=== PATIENT | female | born 1945 | race Caucasian/White ===

== ENCOUNTER 2020-02-07 17:03 | Inpatient (IN) | payer OTHER, SELFPAY ==
[2020-02-07 17:17] VITALS: BP 110/66; PULSE 95; RESP 18; TEMP 37.9; O2SAT 88; BMI 18.8
[2020-02-07 18:04] VITALS: BP 133/59; PULSE 77; RESP 18; TEMP 37.4; O2SAT 96
--- NOTE | 2020-02-07 18:07 | ED.GENADULT ---
HPI - General Adult General Chief complaint: General Medical Stated complaint: cough Time Seen by Provider: 02/07/20 22:47 Source: patient Mode of arrival: ambulatory Limitations: no limitations History of Present Illness HPI narrative: 74-year-old female with past medical history of hypertension and hyperlipidemia presents with several days weakness, lethargy, poor p.o. intake, cough, and significant life stressors. Her mother 2 days ago and is selling multiple properties. She does not report any sick contacts, does not report any chest pain or pressure, palpitations, abdominal pain, abdominal distention, dysuria, hematuria, edema, or falls. Onset (ago): day(s) Radiation: non-radiation Severity: moderate Severity scale (1-10): 7 Quality: aching Pain Consistency: constant Relieving factors: none Exacerbating factors: movement Associated symptoms: cough, headaches, loss of appetite, malaise and weakness Treatments prior to arrival: NSAID Related Data Home Medications Medication Instructions Recorded Confirmed losartan 1 tab PO DAILY 02/07/20 02/07/20 pravastatin 20 mg PO BEDTIME 02/07/20 02/07/20 Allergies Allergy/AdvReac Type Severity Reaction Status Date / Time No Known Allergies Allergy Verified 02/07/20 18:08 Review of Systems Review of Systems: Constitutional: positive Fever, positive Chills, positive fatigue, positive Malaise ENT/Mouth: positive sore throat, positive runny nose Eyes: No Discharge Cardiovascular: No Chest Pain, positive SOB Respiratory: Positive Cough, No Sputum, No Wheezing, No Smoke Exposure, No Dyspnea Gastrointestinal: No Nausea, No Vomiting, No Diarrhea Genitourinary: no irregular bleeding, No Dysuria, No Urinary Frequency, No Hematuria, No Urinary Incontinence, No Urgency, No Flank Pain, Musculoskeletal: positive Myalgia Skin: No rash Neuro: No Headache Yes all other systems are reviewed and are negative PMFSH Past Medical History Attestation statement: The following information was validated with the patient. Medical History No known health problems Social History Social History Smoked in Last 30 Days: No Use of substances other than those prescribed or required for medical reasons: No Advance Directives: No Advance Directives Information Provided: No Physical Exam Vital Signs: Vital Signs: Last Vital Signs Temp 97.1 F 02/08/20 00:41 Pulse 72 02/08/20 00:41 Resp 18 02/08/20 00:41 BP 123/61 02/08/20 00:41 Pulse Ox 93 02/08/20 00:41 Body Mass Index 18.8 Appearance: Alert. Oriented X3. Moderate distress. Tachypneic, pale, mild diaphoretic, hypoxic Eyes: Pupils equal, round and reactive to light. ENT: Pharynx normal. Neck: Normal inspection. Neck supple. CVS: Tachycardic heart rate and rhythm. Pulses normal. Respiratory: No respiratory distress. Breath sounds wheezing and coarse Abdomen: Soft and nontender. Skin: Skin warm and mild diaphoresis Normal skin color. Normal skin turgor. Extremities: No lower extremity edema. Neuro: No motor deficit. No sensory deficit. Course Course Course Narrative: 74-year-old female with hypertension and hyperlipidemia presents with upper respiratory symptoms consistent with COVID-19, hypoxia and multiple life stressors. She does report to be under significant stress because her mother 2 days ago and is selling properties. She does not report suicidal or homicidal ideations. She does not report depression but states to have appropriate and significant anxiety at this time. She is hypoxic on arrival, required 2 L of O2 nasal cannula, heart rate is 95 tachycardic, temperature 100.3 oral, while she does meet SIRS criteria this is a viral upper respiratory infection. Patient is COVID positive, needs O2 nasal cannula to maintain saturation above 92%. Discussion with hospitalist regarding plan to admit. Consultations Consultation #1: Anthony Rodríguez Time: 20:43 Medical Decision Making Differential Diagnosis Differential Diagnosis: COVID-19, pneumonia, viral syndrome, sepsis Medical Records Medical records reviewed: Yes I reviewed the patient's medical records. Lab Data Lab results reviewed: Yes I reviewed the patient's lab results. Result diagrams: 02/07/20 18:33 02/07/20 18:33 Labs: Lab Results 02/07/20 02/07/20 02/07/20 Range/Units 18:33 18:33 18:33 WBC 5.5 (4.8-10.8) X10*3/uL RBC 4.86 (4.20-5.50) X10*6/uL Hgb 14.6 (12.0-16.0) g/dl Hct 43.4 (37-47) % MCV 89.3 (80-98) fL MCH 30.0 (27.0-33.0) pg MCHC 33.6 (31.0-35.0) g/dl RDW 12.5 (11.0-16.0) % Plt Count 166 (160-400) X10*3/uL MPV 9.6 (9.4-12.3) fL Immature Gran % (Auto) 0.4 (0.0-0.4) % Neut % (Auto) 79.2 H (45-73) % Lymph % (Auto) 12.9 L (20-40) % [place] % (Auto) 7.3 (2-11) % Eos % (Auto) 0.0 (0-4) % Baso % (Auto) 0.2 (0-2) % Lymph # (Auto) 0.7 L (1.2-4.9) X10*3/uL [place] # (Auto) 0.4 (0.1-1.2) X10*3/uL Eos # (Auto) 0.0 (0.0-0.4) X10*3/uL Baso # (Auto) 0.0 (0.0-0.2) X10*3/uL Abs Immat Gran (auto) 0.02 (0.00-0.03) X10*3/uL Absolute Neuts (auto) 4.4 (2.0-8.3) X10*3/uL Absolute Nucleated RBC 0.000 (0.0-0.012) X10*3/uL Nucleated RBC % (auto) 0.0 (0.0-0.2) /100WBC PT 12.5 (10.8-13.0) SEC INR 1.1 (0.9-1.1) APTT 27.9 (24.1-38.0) SEC Sodium 134 L (135-145) mmol/L Potassium 4.5 (3.3-5.1) mmol/l Chloride 98 (96-108) mmol/L Carbon Dioxide 29 (22-29) mmol/L Anion Gap 12 (12-20) BUN 16 (9-16) mg/dL Creatinine 0.81 (0.5-1.4) mg/dL Estim Creat Clear Calc 47.3 Estimated GFR > 60 Random Glucose 108 (60-115) mg/dL Lactic Acid (0.5-2.0) mmol/L Calcium 8.4 (8.4-10.2) mg/dL Troponin I High Sens (<3.5-17.0) ng/L Coronavirus (PCR) (Negative) Influenza Type A (PCR) (Negative) Influenza Type B (PCR) (Negative) RSV RNA Qual (PCR) (Negative) 02/07/20 02/07/20 02/07/20 Range/Units 18:33 18:33 18:33 WBC (4.8-10.8) X10*3/uL RBC (4.20-5.50) X10*6/uL Hgb (12.0-16.0) g/dl Hct (37-47) % MCV (80-98) fL MCH (27.0-33.0) pg MCHC (31.0-35.0) g/dl RDW (11.0-16.0) % Plt Count (160-400) X10*3/uL MPV (9.4-12.3) fL Immature Gran % (Auto) (0.0-0.4) % Neut % (Auto) (45-73) % Lymph % (Auto) (20-40) % [place] % (Auto) (2-11) % Eos % (Auto) (0-4) % Baso % (Auto) (0-2) % Lymph # (Auto) (1.2-4.9) X10*3/uL [place] # (Auto) (0.1-1.2) X10*3/uL Eos # (Auto) (0.0-0.4) X10*3/uL Baso # (Auto) (0.0-0.2) X10*3/uL Abs Immat Gran (auto) (0.00-0.03) X10*3/uL Absolute Neuts (auto) (2.0-8.3) X10*3/uL Absolute Nucleated RBC (0.0-0.012) X10*3/uL Nucleated RBC % (auto) (0.0-0.2) /100WBC PT (10.8-13.0) SEC INR (0.9-1.1) APTT (24.1-38.0) SEC Sodium (135-145) mmol/L Potassium (3.3-5.1) mmol/l Chloride (96-108) mmol/L Carbon Dioxide (22-29) mmol/L Anion Gap (12-20) BUN (9-16) mg/dL Creatinine (0.5-1.4) mg/dL Estim Creat Clear Calc Estimated GFR Random Glucose (60-115) mg/dL Lactic Acid 1.0 (0.5-2.0) mmol/L Calcium (8.4-10.2) mg/dL Troponin I High Sens 8.2 (<3.5-17.0) ng/L Coronavirus (PCR) POSITIVE A (Negative) Influenza Type A (PCR) NEGATIVE (Negative) Influenza Type B (PCR) NEGATIVE (Negative) RSV RNA Qual (PCR) NEGATIVE (Negative) Imaging Data CT scan - chest: Attestation: I personally reviewed and interpreted this imaging study as follows: Radiologist's impression: EXAMINATION: CT CHEST WITHOUT CONTRAST CLINICAL INFORMATION: Hypoxia COMPARISON: None TECHNIQUE: Multidetector volumetric CT imaging of the chest was done. Axial MIP volume rendering provided. Sagittal and coronal reformatted images were obtained. This CT examination was performed using dose optimization techniques as appropriate, variously including the following: *Automated exposure control *Adjustment of mA and/or kV according to patient size (this includes techniques or standardized protocols for targeted exams where dose is matched to indication/reason for exam; i.e. extremities or head) *Use of iterative reconstruction technique DLP: 190 mGy-cm FINDINGS: ANIMAL HUMANE AGENT SUPERVISOR: Unremarkable. LUNGS: The central airways are patent. There are patchy groundglass opacities seen diffusely throughout both lungs. There is a peripheral distribution. No dense consolidation. No pneumothorax. No suspicious pulmonary nodules, although the lung opacities can limit visualization. MEDIASTINUM: Normal heart size. No pericardial effusion. Mildly prominent pretracheal lymph node which measures 0.8 cm in short axis dimension on series 3 image 16. No pathologically enlarged lymph nodes are seen. PLEURA: There is no pleural effusion. No pleural mass or thickening. AXILLA: No lymphadenopathy. UPPER ABDOMEN: There is a 1.9 cm cyst in segment 2 of the liver anteriorly. No acute abnormality in the visualized upper abdomen. OSSEOUS STRUCTURES: No acute or suspicious osseous abnormality. Mild degenerative changes of the spine. CT/CT chest wo con IMPRESSION: Patchy groundglass opacities are seen throughout both lungs with peripheral distribution. This is suggestive of infectious or inflammatory process. This is a typical pattern for COVID pneumonia. ECG Data Attestation: I personally reviewed and interpreted this ECG as follows: Prior ECG tracings: not available for review Interpretation: Vent. Rate : 071 BPM Atrial Rate : 071 BPM P-R Int : 128 ms QRS Dur : 082 ms QT Int : 378 ms P-R-T Axes : 036 009 017 degrees QTc Int : 410 ms Normal sinus rhythm Normal ECG No previous ECGs available Date 02/07/2020 time 6:56 p.m. Critical Care Time Critical Care Time Critical Care Time: Yes Total Critical Care Time: 45 Attestation: I have personally provided critical care time exclusive of time spent on separately billable procedures. Time includes review of laboratory data, radiology results, discussion with consultants, and monitoring for potential decompensation. Interventions were performed as documented. Discharge Plan Discharge Clinical Impression: Hypoxia, COVID-19 Patient Disposition: Admitted As Inpatient Interventions: Admission Worksheet (ED) Last Done: 02/08/20 00:44 Discharge Date/Time: 02/08/20 00:44
--- NOTE | 2020-02-07 18:08 | ECG_ITS ---
Test Reason : DIZZINESS Blood Pressure : / mmHG Vent. Rate : 071 BPM Atrial Rate : 071 BPM P-R Int : 128 ms QRS Dur : 082 ms QT Int : 378 ms P-R-T Axes : 036 009 017 degrees QTc Int : 410 ms Normal sinus rhythm Normal ECG No previous ECGs available Referred By: Jade Candelaria Electronically Signed By:Guillermo Sheppard
[2020-02-07 18:50] LABS: MANUAL DIFF FLAG NO
[2020-02-07 18:52] LABS: Basophils Percent Auto 0.2 % (0-2); Hematocrit 43.4 % (37-47); Hemoglobin 14.6 g/dl (12.0-16.0); Imm Gran Abs Auto 0.02 X10*3/uL (0.00-0.03); Imm Gran Pct Auto 0.4 % (0.0-0.4); Lymphocytes Absolute Auto 0.7 X10*3/uL (1.2-4.9); Lymphocytes Percent Auto 12.9 % (20-40); Mean Corpuscular HGB Conc 33.6 g/dl (31.0-35.0); Mean Corpuscular Volume 89.3 fL (80-98); Mean Platelet Volume 9.6 fL (9.4-12.3); Monocytes Absolute Auto 0.4 X10*3/uL (0.1-1.2); Monocytes Percent Auto 7.3 % (2-11); Neutrophils Absolute Auto 4.4 X10*3/uL (2.0-8.3); Neutrophils Percent Auto 79.2 % (45-73); Platelet Count 166 X10*3/uL (160-400); Red Blood Count 4.86 X10*6/uL (4.20-5.50); Red Cell Distribution Width 12.5 % (11.0-16.0); White Blood Count 5.5 X10*3/uL (4.8-10.8)
[2020-02-07 19:08] LABS: INTERNATIONAL NORM RATIO 1.1 (0.9-1.1); Prothrombin Time 12.5 SEC (10.8-13.0)
[2020-02-07 19:10] LABS: Partial Thromboplastin Time 27.9 SEC (24.1-38.0)
[2020-02-07 19:13] LABS: Anion Gap 12 (12-20); Blood Urea Nitrogen 16 mg/dL (9-16); Calcium 8.4 mg/dL (8.4-10.2); Carbon Dioxide 29 mmol/L (22-29); Chloride 98 mmol/L (96-108); Creatinine Clr Calc Pharmacy 47.3; Estimated Glomerular Filt Rate > 60; Glucose Random 108 mg/dL (60-115); Potassium 4.5 mmol/l (3.3-5.1); Sodium 134 mmol/L (135-145)
[2020-02-07 19:20] LABS: Troponin-I High Sensitivity 8.2 ng/L (<3.5-17.0)
[2020-02-07 19:27] LABS: Influenza A PCR NEGATIVE (Negative); Influenza B PCR NEGATIVE (Negative); Resp Syncy Virus RNA Qual PCR NEGATIVE (Negative); SARS COV2 PCR INHOUSE POSITIVE (Negative)
[2020-02-07 19:43] VITALS: BP 116/55; PULSE 70; RESP 16; TEMP 37.2; O2SAT 95
--- NOTE | 2020-02-07 19:44 | PC.NURSE ---
Pt resting in bed, CAOx4 speaking full sentences, pt denies pain/discomfort, SOB at this time. Pt explains that she has been feeling unwell for 3-4 days with a dry cough, SOB and weakness. Pt aware of pending labs. VSS. Lights dim for comfort. Continue to monitor.
--- NOTE | 2020-02-07 19:45 | PC.NURSE ---
Pt aware of pending urine sample, states she is unable to go at this time. Pt to call when able to urinate.
[2020-02-07 20:04] VITALS: PULSE 70; O2SAT 96
[2020-02-07] MEDS: Albuterol Sulfate 90 MCG 8 GM INHALER 2 PUFF INHALE (20:04)
--- NOTE | 2020-02-07 20:18 | PC.NURSE ---
RT at bedside for inhaler. RT report attempts at weaning pt from O2 unsuccessful, pt quickly desatted to 90% on RA, RT reapplied O2 via NC @ 2lpm. Pt medicated with Decadron per APR.
--- NOTE | 2020-02-07 21:30 | PC.NURSE ---
BRONZE PLATER at bedside explaining plan to admit, pt agreeable to admission. Awaiting hospitalist and room assignment.
--- NOTE | 2020-02-07 23:14 | PM.IMHP ---
History of Present Illness Date of Service: 02/07/20 Chief Complaint: SOB 74 y/o female with PMHX of HTN and HLP who presented from home c/o SOB. Per history provided by the patient, for the past several days has been having worsening dry cough associated with SOB at rest, generalized weakness and Poor apppetite. Patient denies any chest pain, nausea, vomiting, diarrhea or fever. No sick contacts or recent travel. On presentation to the ED patient was found to be hemodynamically stable, no evidence of fever, O2 sat on room air of 88, Blood work showing NA of 134, Covid +, CT chest showing bilateral patchy opacities. Patient placed on nasal cannula saturating well now and One dose of IV steroid given. Decision for admission given. Patient seen and examined at the bedside, laying down in bed in no acute distress. ROS as above otherwise negative. Physical exam unremarkable. PMHX; HTN, HLP PSx: none Toxic habits: No hx of alcohol abuse, smoking or IVDA Review of Systems Constitutional: Constitutional: Reports as per [facility] Medical History No known health problems Functional capacity: independent ambulation Social History Smoked in Last 30 Days: No Use of substances other than those prescribed or required for medical reasons: No Advance Directives: No Advance Directives Information Provided: No Meds Allergies Allergy/AdvReac Type Severity Reaction Status Date / Time No Known Allergies Allergy Verified 02/07/20 18:08 Home Medications Medication Instructions Recorded Confirmed Type losartan 1 tab PO DAILY 02/07/20 02/07/20 History pravastatin 20 mg PO BEDTIME 02/07/20 02/07/20 History Physical Exam Vital Signs and Narrative: Vital Signs: Last Vital Signs Temp 99.0 F 02/07/20 19:43 Pulse 70 02/07/20 20:04 Resp 16 02/07/20 19:43 BP 116/55 L 02/07/20 19:43 Pulse Ox 95 02/07/20 19:43 Body Mass Index 18.8 Const: General: cooperative, comfortable and no acute distress Orientation/consciousness: oriented to person, oriented to place and oriented to time HENMT: Head: Yes normal to inspection Eyes: General: appearance normal, both eyes and all related structures Neck: Yes normal visual inspection Chest: Chest palpation & inspection: normal inspection of the chest Resp: Effort & Inspection: normal respiratory effort Auscultation: clear to auscultation bilaterally Cardio: Jugular venous distension: no JVD Rate: regular rate Rhythm: regular rhythm Heart sounds: S1 normal heart sound present and S2 normal heart sound present GI: Inspection: Yes normal to inspection Skin: General skin exam: no rashes or lesions noted Neuro: General: oriented to person, oriented to place and oriented to time Cognition (Neuro): normal cognition Extrem: Right upper extremity: normal to inspection Results Labs CBC and Chem 7: 02/07/20 18:33 12 18:33 Labs: Laboratory Results - last 24 hr 02/07/20 02/07/20 02/07/20 18:33 18:33 18:33 MCV 89.3 MCH 30.0 MCHC 33.6 RDW 12.5 Plt Count 166 MPV 9.6 Immature Gran % (Auto) 0.4 Neut % (Auto) 79.2 H Lymph % (Auto) 12.9 L [place] % (Auto) 7.3 Eos % (Auto) 0.0 Baso % (Auto) 0.2 Lymph # (Auto) 0.7 L [place] # (Auto) 0.4 Eos # (Auto) 0.0 Baso # (Auto) 0.0 Abs Immat Gran (auto) 0.02 Absolute Neuts (auto) 4.4 Absolute Nucleated RBC 0.000 Nucleated RBC % (auto) 0.0 PT 12.5 INR 1.1 APTT 27.9 Anion Gap 12 Estim Creat Clear Calc 47.3 Estimated GFR > 60 Random Glucose 108 Lactic Acid Calcium 8.4 Troponin I High Sens Coronavirus (PCR) Influenza Type A (PCR) Influenza Type B (PCR) RSV RNA Qual (PCR) 02/07/20 02/07/20 02/07/20 18:33 18:33 18:33 MCV MCH MCHC RDW Plt Count MPV Immature Gran % (Auto) Neut % (Auto) Lymph % (Auto) [place] % (Auto) Eos % (Auto) Baso % (Auto) Lymph # (Auto) [place] # (Auto) Eos # (Auto) Baso # (Auto) Abs Immat Gran (auto) Absolute Neuts (auto) Absolute Nucleated RBC Nucleated RBC % (auto) PT INR APTT Anion Gap Estim Creat Clear Calc Estimated GFR Random Glucose Lactic Acid 1.0 Calcium Troponin I High Sens 8.2 Coronavirus (PCR) POSITIVE A Influenza Type A (PCR) NEGATIVE Influenza Type B (PCR) NEGATIVE RSV RNA Qual (PCR) NEGATIVE Imaging Radiologist's Impressions: Impressions Chest CT 02/07/20 18:08 IMPRESSION: Patchy groundglass opacities are seen throughout both lungs with peripheral distribution. This is suggestive of infectious or inflammatory process. This is a typical pattern for COVID pneumonia. Assessment and Plan (1) Respiratory failure: Status: Acute Continue with O2 therapy and titrate off as tolerated Continue with IV decadron as ordered and taper as tolerated Follow up [facility] Infectious disease consult in the am (2) COVID-19: Status: Acute plan as above (3) Hypertension: Status: Acute continue with home BP meds (4) Hyperlipidemia: Status: Acute continue with statin home dose
--- NOTE | 2020-02-07 23:17 | PC.NURSE ---
This RN calling to give report, IMC unable to take report at this time.
--- NOTE | 2020-02-07 23:32 | PC.NURSE ---
Report given to liz Bullock ready for transport to floor.
--- NOTE | 2020-02-07 23:33 | PC.NURSE ---
Girma Power to be called with updates [phone]
[2020-02-07 23:59] VITALS: BP 122/62; PULSE 67; RESP 16; O2SAT 95
[2020-02-08] VITALS (9 sets, daily range): BP systolic 97–123; BP diastolic 53–61; PULSE 60–80; RESP 18–20; TEMP 35.9–36.8; O2SAT 84–97; BMI 22.4
--- NOTE | 2020-02-08 00:20 | PC.NURSE ---
geological technical officer at bedside for transport to floor.
[2020-02-08] MEDS: Heparin Sodium,Porcine 5,000 UNIT/ML VIAL 5000 UNIT SUBCUT ×2 (01:45→06:31)
[2020-02-08] MEDS: 0.9 % Sodium Chloride Flush 3 ML SYRINGE IVFLUSH ×4 (01:46→22:46)
[2020-02-08 02:38] LABS: Glucose Urine UA NEG (NEG); Leukocyte Esterase Urine NEG (NEG); Nitrite Urine NEG (NEG); Urine Blood TRACE (NEG); Urine Ketones 15 MG/DL (NEG); Urine Protein NEG (NEG-TRACE)
[2020-02-08 02:48] LABS: Appearance Urine CLEAR; Color Urine YELLOW
[2020-02-08 03:02] LABS: Bacteria Urine 1+ /LPF; Mucus Urine 1+ /LPF; Squamous Epithelial Cell Urine 1+ /LPF
--- NOTE | 2020-02-08 03:39 | PC.NURSE ---
on admission @ 0050 pt reports a lot of stress in her life recently. Her Mother recently, to be held this Monday, but now due to COVID causing anxiety she was prescribed medication for, but is unsure what the name of the med is. Denies anxiety upon admission-just 'tired .
[2020-02-08 07:13] LABS: Hematocrit 42.7 % (37-47); Hemoglobin 14.1 g/dl (12.0-16.0); Lymphocytes Absolute Auto 0.5 X10*3/uL (1.2-4.9); Lymphocytes Percent Auto 18.2 % (20-40); MANUAL DIFF FLAG SCAN; Mean Corpuscular Hemoglobin 29.6 pg (27.0-33.0); Mean Corpuscular Volume 89.7 fL (80-98); Mean Platelet Volume 9.7 fL (9.4-12.3); Monocytes Absolute Auto 0.1 X10*3/uL (0.1-1.2); Monocytes Percent Auto 4.9 % (2-11); Neutrophils Absolute Auto 2.2 X10*3/uL (2.0-8.3); Neutrophils Percent Auto 76.9 % (45-73); Platelet Count 163 X10*3/uL (160-400); Red Blood Count 4.76 X10*6/uL (4.20-5.50); Red Cell Distribution Width 12.3 % (11.0-16.0); SCAN SMEAR FLAG 1; White Blood Count 2.9 X10*3/uL (4.8-10.8)
[2020-02-08 07:40] LABS: SLIDE REVIEW VERIFIED
[2020-02-08 07:47] LABS: Anion Gap 13 (12-20); Blood Urea Nitrogen 17 mg/dL (9-16); Calcium 8.5 mg/dL (8.4-10.2); Carbon Dioxide 27 mmol/L (22-29); Chloride 101 mmol/L (96-108); Creatinine Clr Calc Pharmacy 54.3; Estimated Glomerular Filt Rate > 60; Glucose Random 151 mg/dL (60-115); Potassium 4.8 mmol/l (3.3-5.1); Sodium 136 mmol/L (135-145)
--- NOTE | 2020-02-08 12:28 | HO.PM.IMPN ---
Subjective Subjective Date of Service: 02/08/20 Interval History: seen and examined this AM feels okay. coughing, but no sob at rest ROS General - no fevers or chills, +Malaise Cardiovascular - no chest pain Respiratory - couhg, +VALENTINE, but okay at rest Abdominal- no abdominal pain, nausea, vomiting, diarrhea Physical Exam Vital Signs: Vital Signs: Last Vital Signs Temp 97.8 F 02/08/20 11:04 Pulse 71 02/08/20 11:04 Resp 18 02/08/20 11:04 BP 97/57 L 02/08/20 11:04 Pulse Ox 91 L 02/08/20 11:04 Body Mass Index 22.4 Const: Other: General - ill appearing Cardiovascular - regular rate and rhythm, S1-S2 Lungs - dim sounds Abdomen - soft, nontender, no rebound or guarding Extremities - no edema bilaterally Neuro - awake and alert, no focal deficits Objective Data Current Medications Generic Name Dose Route Start Last Admin Trade Name Freq PRN Reason Stop Dose Admin Dexamethasone Sodium Phosphate 6 mg 02/08/20 06:00 02/08/20 06:29 Dexamethasone Sod Phosphate/Pf 10 Mg/Ml Vial IVPUSH 6 mg Q24H NAHOMI Administration Heparin Sodium (Porcine) 5,000 unit 02/07/20 22:00 02/08/20 06:31 Heparin Sodium,Porcine 5,000 Unit/Ml Vial SUBCUT 5,000 unit Q8H NAHOMI Administration Pravastatin Sodium 20 mg 02/08/20 21:00 Pravastatin Sodium 20 Mg Tablet PO BEDTIME NAHOMI Sodium Chloride 3 ml 02/08/20 00:00 02/08/20 10:24 0.9 % Sodium Chloride Flush 3 Ml Syringe IVFLUSH 3 ml QSHIFT NAHOMI Administration Labs CBC & Chem 7: 02/08/20 06:45 02/08/20 06:45 Assessment and Plan (1) COVID-19: Status: Acute (2) Hypoxia: Status: Acute Assessment and Plan: This is a 74 yo F with PMH Of HTN/HLD who presents to the hospital with generalized malaise. She is admitted for resp. failure with hypoxia due to COVID 19. 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 COVID 19 causing hypoxic respiratory failure supplemental O2 to keep oxygenation > 90 IV decadron ID consultation trend inflammatory bio-markers 2. HTN bp lower; hold antihypertensives 3. HLD statin Full Code DVT pptx, lovenox
[2020-02-08 13:09] LABS: Lactate Dehydrogenase 457 U/L (122-220)
[2020-02-08 13:30] LABS: Ferritin 1232 ng/mL (10-250)
[2020-02-08 13:34] LABS: Procalcitonin 0.05 ng/mL
--- NOTE | 2020-02-08 16:46 | MHC.CM.PN ---
CM contacted pt on her cell phone, ([phone]). pt reports she lives at home with her and is fully independent, has no services and no AD. Pt reports she has an inhaler she does not use and a knee brace but no other DME. Pt states she has a HCP naming her as her agent and her PCP is Lion Pryor. IMM delivered verbally, pt indicates understanding and is aware a copy will be sent to her via certified mail. Current DC plan is home with no services pt will arrange transport
--- NOTE | 2020-02-08 18:02 | PC.NURSE ---
Pt oob to the bathroom , back to her bed, oxygen saturation 84% on room air . Oxygen applied 2.5 liter, oxygen saturation 92%, oxygen increased to 3 l vi NC.
[2020-02-08 18:50] LABS: Alanine Aminotransferase 23 U/L (0-31); Albumin Level 3.4 g/dL (3.5-5.0); Alkaline Phosphatase 54 U/L (39-117); Aspartate Amino Transferase 38 U/L (5-31); Bilirubin Direct 0.4 mg/dL (0.0-0.5); Bilirubin Total 0.7 mg/dL (0.0-1.0); Total Protein 5.4 g/dL (6.5-8.0)
[2020-02-08] MEDS: Enoxaparin Sodium 40 MG/0.4 ML SYRINGE SUBCUT (21:47)
[2020-02-08] MEDS: Pravastatin Sodium 20 MG TABLET PO (21:48)
--- NOTE | 2020-02-08 21:56 | P.CNID_ITS ---
History of Present Illness Data of Consult Service Date: 02/08/20 Requesting physician: Art Ludwig Primary Care Provider: Lion Pryor MD HPI Reason for consult: covid She presents with 2 days symptoms of weakness and decreased po intake and cough. She has low grade fever and chills She has no nausea,vomiting or diarrhea She has increasing oxygen requirements at 84% on activity RA and now on 3 liters to maintain 94% Mother recently ,thinks may be COVID Review of Systems Cardiovascular: Cardiovascular: Reports dyspnea Respiratory: Respiratory: Reports dyspnea COUNT INCLUDES [facility] Past Medical History Medical History No known health problems Functional capacity: independent ambulation Social History Social History Household Members: Spouse Housing: Apartment Do you presently have visiting nurse or other home services: No Smoking Status: Never smoker Smoked in Last 30 Days: No Second Hand Smoke Exposure: No Use of substances other than those prescribed or required for medical reasons: No Currently Displaying Signs/Symptoms of Drug Intoxication Withdrawal: No Have you been hit, kicked, punched, or otherwise hurt by someone within the past year? If so, by whom?: No Do you feel safe in your current relationship?: No Is there a partner from a previous relationship who is making you feel unsafe now?: No Are you made to feel afraid or neglected: No Advance Directives: No Advance Directives Information Provided: No Do you have thoughts of harming others: None Do you have a plan to hurt others: No Plan Recently lost weight without trying: Unsure service: No Current occupational status: retired [employer] Allergies Allergy/AdvReac Type Severity Reaction Status Date / Time No Known Allergies Allergy Verified 02/08/20 03:23 Home Medications Medication Instructions Recorded Confirmed Type losartan 1 tab PO DAILY 02/07/20 02/07/20 History pravastatin 20 mg PO BEDTIME 02/07/20 02/07/20 History Physical Exam Vital Signs: Vital Signs: Last Vital Signs Temp 96.8 F 02/08/20 19:11 Pulse 80 02/08/20 19:11 Resp 19 02/08/20 19:11 BP 104/60 02/08/20 19:11 Pulse Ox 96 02/08/20 19:11 Body Mass Index 22.4 Const: General: acute distress HENMT: Head: Yes normal to inspection Eyes: General: appearance normal, both eyes and all related structures Resp: Effort & Inspection: labored Cardio: Rate: regular rate Rhythm: regular rhythm GI: Palpation (GI): Soft to palpation and nontender Back/Spine/Pelvis: Cervical Spine: cervical muscular tenderness Thoracic/Lumbar Spine: thoracic and lumbar spine normal to inspection Skin: General skin exam: no rashes or lesions noted Assessment and Plan (1) COVID-19: Problem details: She has sudden onset of severe COVID She has increasing oxygen requirements Status: Acute Remdesivir 200 mg and then 100 mg daily for 4 days Dexamethasone 100 mg daily Supportive oxygen (2) Hypoxia: Status: Acute (3) Respiratory failure: Status: Acute Results Labs CBC & Chem 7: 02/08/20 06:45 02/08/20 06:45 Labs: Short CBC 02/08/20 Range/Units 06:45 WBC 2.9 L (4.8-10.8) X10*3/uL Hgb 14.1 (12.0-16.0) g/dl Hct 42.7 (37-47) % Plt Count 163 (160-400) X10*3/uL BMP 02/08/20 06:45 Sodium 136 Potassium 4.8 Chloride 101 Carbon Dioxide 27 BUN 17 H Creatinine 0.74 Calcium 8.5 Liver Function 02/08/20 Range/Units 17:50 Total Bilirubin 0.7 (0.0-1.0) mg/dL Direct Bilirubin 0.4 (0.0-0.5) mg/dL AST 38 H (5-31) U/L ALT 23 (0-31) U/L Alkaline Phosphatase 54 (39-117) U/L Albumin 3.4 L (3.5-5.0) g/dL Urine 02/08/20 Range/Units 02:22 Urine Color YELLOW Urine Appearance CLEAR Urine pH 6.0 (5.0-8.0) Ur Specific Galliano 1.020 (1.005-1.025) Urine Protein NEG (NEG-TRACE) MG/DL Urine Glucose (UA) NEG (NEG) MG/DL Microbiology Microbiology Results: Microbiology 02/07/20 18:36 Blood - Venous Blood Culture - Preliminary No growth after 24 hours. 02/07/20 18:36 Blood - Venous Blood Culture - Preliminary No growth after 24 hours.
[2020-02-08] MEDS: Remdesivir 200 MG in 0.9 % Sodium Chloride 210 ML 105 MG IV (22:46)
[2020-02-09] VITALS (8 sets, daily range): BP systolic 100–116; BP diastolic 46–70; PULSE 64–80; RESP 16–19; TEMP 36–36.9; O2SAT 90–95
[2020-02-09 07:11] LABS: Hematocrit 43.5 % (37-47); Hemoglobin 14.4 g/dl (12.0-16.0); Mean Corpuscular HGB Conc 33.1 g/dl (31.0-35.0); Mean Corpuscular Hemoglobin 29.6 pg (27.0-33.0); Mean Corpuscular Volume 89.3 fL (80-98); Mean Platelet Volume 10.1 fL (9.4-12.3); Platelet Count 221 X10*3/uL (160-400); Red Blood Count 4.87 X10*6/uL (4.20-5.50); Red Cell Distribution Width 12.4 % (11.0-16.0); White Blood Count 8.7 X10*3/uL (4.8-10.8)
[2020-02-09 07:13] LABS: Alanine Aminotransferase 24 U/L (0-31); Albumin Level 3.4 g/dL (3.5-5.0); Alkaline Phosphatase 51 U/L (39-117); Anion Gap 12 (12-20); Aspartate Amino Transferase 39 U/L (5-31); Bilirubin Direct 0.3 mg/dL (0.0-0.5); Bilirubin Total 0.6 mg/dL (0.0-1.0); Blood Urea Nitrogen 23 mg/dL (9-16); Calcium 8.6 mg/dL (8.4-10.2); Carbon Dioxide 28 mmol/L (22-29); Chloride 104 mmol/L (96-108); Creatinine Clr Calc Pharmacy 52.2; Estimated Glomerular Filt Rate > 60; Glucose Random 152 mg/dL (60-115); Sodium 139 mmol/L (135-145); Total Protein 5.6 g/dL (6.5-8.0)
[2020-02-09 08:03] LABS: C Reactive Protein 2.18 mg/dL (< or = 0.50); Lactate Dehydrogenase 440 U/L (122-220)
[2020-02-09 08:07] LABS: Procalcitonin 0.05 ng/mL
[2020-02-09] MEDS: 0.9 % Sodium Chloride Flush 3 ML SYRINGE IVFLUSH ×2 (08:11→15:37)
--- NOTE | 2020-02-09 09:57 | HO.PM.IMPN ---
Subjective Subjective Date of Service: 02/09/20 Interval History: seen and examined this AM reports feeling better today, still sob and tired but thinks slight improvement since yesterday ROS General - no fevers or chills, +Malaise Cardiovascular - no chest pain Respiratory - sob/cough better Abdominal- no abdominal pain, nausea, vomiting, diarrhea Physical Exam Vital Signs: Vital Signs: Last Vital Signs Temp 97.0 F 02/09/20 07:49 Pulse 67 02/09/20 07:49 Resp 16 02/09/20 07:49 BP 108/57 L 02/09/20 07:49 Pulse Ox 94 02/09/20 07:49 Body Mass Index 22.4 Const: Other: General - ill appearing Cardiovascular - regular rate and rhythm, S1-S2 Lungs - dim sounds Abdomen - soft, nontender, no rebound or guarding Extremities - no edema bilaterally Neuro - awake and alert, no focal deficits Objective Data Current Medications Generic Name Dose Route Start Last Admin Trade Name Freq PRN Reason Stop Dose Admin Dexamethasone Sodium Phosphate 6 mg 02/08/20 21:00 02/08/20 21:47 Dexamethasone Sod Phosphate/Pf 10 Mg/Ml Vial IVPUSH 6 mg BEDTIME NAHOMI Administration Enoxaparin Sodium 40 mg 02/08/20 21:00 02/08/20 21:47 Enoxaparin Sodium 40 Mg/0.4 Ml Syringe SUBCUT 40 mg BEDTIME NAHOMI Administration Remdesivir 100 mg/ Sodium 230 mls @ 115 mls/hr 02/09/20 22:00 Chloride IV 02/12/20 23:59 Q24H NAHOMI Pravastatin Sodium 20 mg 02/08/20 21:00 02/08/20 21:48 Pravastatin Sodium 20 Mg Tablet PO 20 mg BEDTIME NAHOMI Administration Sodium Chloride 3 ml 02/08/20 00:00 02/09/20 08:11 0.9 % Sodium Chloride Flush 3 Ml Syringe IVFLUSH 3 ml QSHIFT NAHOMI Administration Labs CBC & Chem 7: 02/09/20 06:18 02/09/20 06:18 Microbiology Microbiology Results: Microbiology 02/07/20 18:36 Blood - Venous Blood Culture - Preliminary No growth after 24 hours. 02/07/20 18:36 Blood - Venous Blood Culture - Preliminary No growth after 24 hours. Assessment and Plan (1) COVID-19: Status: Acute (2) Hypoxia: Status: Acute Assessment and Plan: This is a 74 yo F with PMH Of HTN/HLD who presents to the hospital with generalized malaise. She is admitted for resp. failure with hypoxia due to COVID 19. 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 COVID 19 causing hypoxic respiratory failure supplemental O2 to keep oxygenation > 90 IV decadron, IV remdesivir ID consultation appreciated trend inflammatory bio-markers q2d or sooner 2. HTN hold antihypertensives 3. HLD statin Full Code DVT pptx, lovenox
--- NOTE | 2020-02-09 19:10 | PC.NURSE ---
Pt reports being tired, needs to be encouraged to get up and sit on the recliner for meals,needs some cuing to ambulate in her room. Assistance provided with an oxygen tank and O 2 tubing during ambulation. Pt requires 3l O2 via NC with ambulation, she drops very easily to 84% on room air. Lungs sounds fine crackles to right lobe, pt has nonproductive cough.
[2020-02-09] MEDS: Pravastatin Sodium 20 MG TABLET PO (21:44)
[2020-02-09] MEDS: Enoxaparin Sodium 40 MG/0.4 ML SYRINGE SUBCUT (21:44)
[2020-02-09] MEDS: Remdesivir 100 MG in 0.9 % Sodium Chloride 230 ML 115 MG IV (21:56)
[2020-02-10] MEDS: 0.9 % Sodium Chloride Flush 3 ML SYRINGE IVFLUSH ×4 (00:41→22:23)
[2020-02-10 02:50] VITALS: BP 111/58; PULSE 53; RESP 16; TEMP 37.1; O2SAT 97
[2020-02-10 05:43] LABS: Hemoglobin 13.9 g/dl (12.0-16.0); Mean Corpuscular HGB Conc 33.1 g/dl (31.0-35.0); Mean Corpuscular Hemoglobin 29.4 pg (27.0-33.0); Mean Platelet Volume 9.7 fL (9.4-12.3); Platelet Count 234 X10*3/uL (160-400); Red Blood Count 4.72 X10*6/uL (4.20-5.50); Red Cell Distribution Width 12.6 % (11.0-16.0); White Blood Count 6.2 X10*3/uL (4.8-10.8)
[2020-02-10 06:13] LABS: Alanine Aminotransferase 25 U/L (0-31); Albumin Level 3.2 g/dL (3.5-5.0); Alkaline Phosphatase 50 U/L (39-117); Anion Gap 13 (12-20); Aspartate Amino Transferase 33 U/L (5-31); Bilirubin Direct 0.3 mg/dL (0.0-0.5); Bilirubin Total 0.5 mg/dL (0.0-1.0); Blood Urea Nitrogen 27 mg/dL (9-16); C Reactive Protein 1.24 mg/dL (< or = 0.50); Calcium 8.2 mg/dL (8.4-10.2); Carbon Dioxide 25 mmol/L (22-29); Chloride 105 mmol/L (96-108); Creatinine Clr Calc Pharmacy 53.6; Estimated Glomerular Filt Rate > 60; Glucose Random 144 mg/dL (60-115); Sodium 138 mmol/L (135-145); Total Protein 5.2 g/dL (6.5-8.0)
[2020-02-10 06:25] LABS: Procalcitonin 0.05 ng/mL
[2020-02-10 07:13] VITALS: BP 143/76; PULSE 79; RESP 19; TEMP 36.4; O2SAT 93
--- NOTE | 2020-02-10 11:25 | P.PNIM_ITS ---
Subjective Subjective Date of Service: 02/10/20 Interval History: seen and examined this AM slowly improving breathing easier ROS General - no fevers or chills, +Malaise Cardiovascular - no chest pain Respiratory - sob/cough better Abdominal- no abdominal pain, nausea, vomiting, diarrhea Physical Exam Vital Signs: Vital Signs: Last Vital Signs Temp 97.6 F 02/10/20 07:13 Pulse 79 02/10/20 07:13 Resp 19 02/10/20 07:13 BP 143/76 H 02/10/20 07:13 Pulse Ox 93 02/10/20 07:13 Body Mass Index 22.4 Const: Other: General - ill appearing Cardiovascular - regular rate and rhythm, S1-S2 Lungs - dim sounds, no distress at rest Abdomen - soft, nontender, no rebound or guarding Extremities - no edema bilaterally Neuro - awake and alert, no focal deficits Objective Data Current Medications Generic Name Dose Route Start Last Admin Trade Name Freq PRN Reason Stop Dose Admin Dexamethasone Sodium Phosphate 6 mg 02/08/20 21:00 02/09/20 21:44 Dexamethasone Sod Phosphate/Pf 10 Mg/Ml Vial IVPUSH 6 mg BEDTIME NAHOMI Administration Enoxaparin Sodium 40 mg 02/08/20 21:00 02/09/20 21:44 Enoxaparin Sodium 40 Mg/0.4 Ml Syringe SUBCUT 40 mg BEDTIME NAHOMI Administration Remdesivir 100 mg/ Sodium 230 mls @ 115 mls/hr 02/09/20 22:00 02/10/20 00:46 Chloride IV 02/12/20 23:59 Infused Q24H NAHOMI Infusion Pravastatin Sodium 20 mg 02/08/20 21:00 02/09/20 21:44 Pravastatin Sodium 20 Mg Tablet PO 20 mg BEDTIME NAHOMI Administration Sodium Chloride 3 ml 02/08/20 00:00 02/10/20 07:54 0.9 % Sodium Chloride Flush 3 Ml Syringe IVFLUSH 3 ml QSHIFT NAHOMI Administration Labs CBC & Chem 7: 02/10/20 05:10 02/10/20 05:11 Microbiology Microbiology Results: Microbiology 02/07/20 18:36 Blood - Venous Blood Culture - Preliminary No growth after 48 hours. 02/07/20 18:36 Blood - Venous Blood Culture - Preliminary No growth after 48 hours. Assessment and Plan (1) COVID-19: Status: Acute (2) Hypoxia: Status: Acute Assessment and Plan: This is a 74 yo F with PMH Of HTN/HLD who presents to the hospital with general ized malaise. She is admitted for resp. failure with hypoxia due to COVID 19. 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 COVID 19 causing hypoxic respiratory failure supplemental O2 to keep oxygenation > 90, on 2-3L at this time -- wean IV decadron, IV remdesivir ID consultation appreciated trend inflammatory bio-markers q2d or sooner -- downtrending 2. HTN bp rebounding, restart losartan tomorrow if bp remains stable 3. HLD statin Full Code DVT pptx, lovenox dispo: Home, anticipate next 2-3 days pending O2 requirements
[2020-02-10 11:39] VITALS: BP 120/56; PULSE 65; RESP 17; TEMP 36.3; O2SAT 93
--- NOTE | 2020-02-10 12:18 | MHC.CM.PN ---
Female 74 DX Covid+ DP home no services Pt will arrange for a ride. CM will follow. Anticipate DC 1-2 days per MD rounds this morning.
--- NOTE | 2020-02-10 13:23 | PC.NURSE ---
Pt weaned off O2 via NC to R/A and O2 sats 93%-94%. Will continue to monitor.
[2020-02-10 13:25] VITALS: O2SAT 93
[2020-02-10 16:00] VITALS: BP 134/60; PULSE 75; RESP 18; TEMP 36.6; O2SAT 90
[2020-02-10 20:00] VITALS: BP 130/61; PULSE 72; RESP 18; TEMP 36.8; O2SAT 92
[2020-02-10] MEDS: Enoxaparin Sodium 40 MG/0.4 ML SYRINGE SUBCUT (22:22)
[2020-02-10] MEDS: Remdesivir 100 MG in 0.9 % Sodium Chloride 230 ML 115 MG IV (22:22)
[2020-02-10] MEDS: Pravastatin Sodium 20 MG TABLET PO (22:23)
[2020-02-11] VITALS (7 sets, daily range): BP systolic 126–155; BP diastolic 64–74; PULSE 64–79; RESP 14–18; TEMP 36.6–37.2; O2SAT 92–95
[2020-02-11] MEDS: 0.9 % Sodium Chloride Flush 3 ML SYRINGE IVFLUSH ×3 (08:57→20:20)
--- NOTE | 2020-02-11 15:30 | P.PNIM_ITS ---
Subjective Subjective Date of Service: 02/11/20 Interval History: the patient was seen and evaluated this morning Laying in bed, feels comfortable but reports generalized weakness and tiredness Denies any fever, chills or shortness of breath No reported other overnight events. Systemic review: No fever, chills but feels overall weak and tired No chest pain, palpitation No shortness of breath or coughing No abdominal pain, nausea or vomiting No urinary symptoms No any rash or wounds Physical Exam Vital Signs: Vital Signs: Last Vital Signs Temp 98.6 F 02/11/20 15:23 Pulse 74 02/11/20 15:23 Resp 17 02/11/20 15:23 BP 126/64 02/11/20 15: Pulse Ox 95 02/11/20 15: Body Mass Index 22.4 Constitutional : Alert, oriented, not in distress Neck : Normal inspection, Supple Cardiovascular : RRR, S1 S2, no lower extremity edema Respiratory : Good bilateral air entry, no crackles, wheezes or rhonchi Gastrointestinal: soft, lax, Normal bowel sounds, Non tender Skin : Warm/Dry, No rash Neurological : Alert & oriented x3, No focal deficit Objective Data Current Medications Generic Name Dose Route Start Last Admin Trade Name Freq PRN Reason Stop Dose Admin Dexamethasone Sodium Phosphate 6 mg 02/08/20 21:00 02/10/20 22:23 Dexamethasone Sod Phosphate/Pf 10 Mg/Ml Vial IVPUSH 6 mg BEDTIME NAHOMI Administration Enoxaparin Sodium 40 mg 02/08/20 21:00 02/10/20 22:22 Enoxaparin Sodium 40 Mg/0.4 Ml Syringe SUBCUT 40 mg BEDTIME NAHOMI Administration Remdesivir 100 mg/ Sodium 230 mls @ 115 mls/hr 02/09/20 22:00 02/11/20 00:07 Chloride IV 02/12/20 23:59 Infused Q24H NAHOMI Infusion Pravastatin Sodium 20 mg 02/08/20 21:00 02/10/20 22:23 Pravastatin Sodium 20 Mg Tablet PO 20 mg BEDTIME NAHOMI Administration Sodium Chloride 3 ml 02/08/20 00:00 02/11/20 15:19 0.9 % Sodium Chloride Flush 3 Ml Syringe IVFLUSH 3 ml QSHIFT NAHOMI Administration Labs CBC & Chem 7: 02/10/20 05:10 02/10/20 05:11 Microbiology Microbiology Results: Microbiology 02/07/20 18:36 Blood - Venous Blood Culture - Preliminary No growth after 48 hours. 02/07/20 18:36 Blood - Venous Blood Culture - Preliminary No growth after 48 hours. Assessment and Plan (1) COVID-19: Status: Acute (2) Hypoxia: Status: Acute Assessment and Plan: This is a 74 yo F with PMH Of HTN/HLD who presents to the hospital with generalized malaise. She is admitted for resp. failure with hypoxia due to COVID 19. 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 COVID 19 causing hypoxic respiratory failure Weaned off oxygen this morning, continue to monitor Continue IV decadron, IV remdesivir ID consultation appreciated trend inflammatory bio-markers -- downtrending 2. HTN Continue losartan 3. HLD statin Full Code DVT pptx, lovenox dispo: Home hopefully tomorrow
[2020-02-11] MEDS: Enoxaparin Sodium 40 MG/0.4 ML SYRINGE SUBCUT (20:17)
[2020-02-11] MEDS: Pravastatin Sodium 20 MG TABLET PO (20:17)
[2020-02-11] MEDS: Remdesivir 100 MG in 0.9 % Sodium Chloride 230 ML 115 MG IV (21:33)
[2020-02-12] VITALS (7 sets, daily range): BP systolic 116–139; BP diastolic 52–75; PULSE 58–76; RESP 17–20; TEMP 36.1–37; O2SAT 92–97
[2020-02-12] MEDS: 0.9 % Sodium Chloride Flush 3 ML SYRINGE IVFLUSH ×3 (07:29→20:12)
--- NOTE | 2020-02-12 12:42 | HO.PM.IMPN ---
Subjective Subjective Date of Service: 02/12/20 Interval History: the patient was seen and evaluated this morning Laying in bed, feels comfortable Denies any fever, chills or shortness of breath No reported other overnight events. On room air today Systemic review: No fever, chills or weakness No chest pain, palpitation Exertion in shortness of breath or coughing No abdominal pain, nausea or vomiting No urinary symptoms No any rash or wounds Physical Exam Vital Signs: Vital Signs: Last Vital Signs Temp 98.5 F 02/12/20 11:25 Pulse 63 02/12/20 11:25 Resp 20 02/12/20 11:25 BP 139/67 02/12/20 11:25 Pulse Ox 94 02/12/20 11:25 Body Mass Index 22.4 Constitutional : Alert, oriented, not in distress Neck : Normal inspection, Supple Cardiovascular : RRR, S1 S2, no lower extremity edema Respiratory : Chest wall moving bilaterally, not in respiratory distress, not tachypneic, on room air Gastrointestinal: soft, lax, Normal bowel sounds, Non tender Skin : Warm/Dry, No rash Neurological : Alert & oriented x3, No focal deficit Objective Data Current Medications Generic Name Dose Route Start Last Admin Trade Name Freq PRN Reason Stop Dose Admin Dexamethasone Sodium Phosphate 6 mg 02/08/20 21:00 02/11/20 20:16 Dexamethasone Sod Phosphate/Pf 10 Mg/Ml Vial IVPUSH 6 mg BEDTIME NAHOMI Administration Enoxaparin Sodium 40 mg 02/08/20 21:00 02/11/20 20:17 Enoxaparin Sodium 40 Mg/0.4 Ml Syringe SUBCUT 40 mg BEDTIME NAHOMI Administration Remdesivir 100 mg/ Sodium 230 mls @ 115 mls/hr 02/09/20 22:00 02/11/20 23:40 Chloride IV 02/12/20 23:59 Infused Q24H NAHOMI Infusion Pravastatin Sodium 20 mg 02/08/20 21:00 02/11/20 20:17 Pravastatin Sodium 20 Mg Tablet PO 20 mg BEDTIME NAHOMI Administration Sodium Chloride 3 ml 02/08/20 00:00 02/12/20 07:29 0.9 % Sodium Chloride Flush 3 Ml Syringe IVFLUSH 3 ml QSHIFT NAHOMI Administration Labs CBC & Chem 7: 02/10/20 05:10 02/10/20 05:11 Microbiology Microbiology Results: Microbiology 02/07/20 18:36 Blood - Venous Blood Culture - Preliminary No growth after 48 hours. 02/07/20 18:36 Blood - Venous Blood Culture - Preliminary No growth after 48 hours. Assessment and Plan (1) COVID-19: Status: Acute (2) Hypoxia: Status: Acute Assessment and Plan: This is a 74 yo F with PMH Of HTN/HLD who presents to the hospital with generalized malaise. She is admitted for resp. failure with hypoxia due to COVID 19. 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 COVID 19 causing hypoxic respiratory failure Weaned off oxygen continue to monitor Continue IV decadron, IV remdesivir D4/5 ID consultation appreciated Plan to DC tomorrow morning if remains on room air 2. HTN Continue losartan 3. HLD statin Full Code DVT pptx, lovenox dispo: Home hopefully tomorrow
--- NOTE | 2020-02-12 14:47 | MHC.CM.PN ---
Female 74 DX COVID+ DP home no services. The Pt will arrange transportation. CM will follow to assess for change in DC needs.
[2020-02-12] MEDS: Pravastatin Sodium 20 MG TABLET PO (20:11)
[2020-02-12] MEDS: Enoxaparin Sodium 40 MG/0.4 ML SYRINGE SUBCUT (20:11)
[2020-02-12] MEDS: Remdesivir 100 MG in 0.9 % Sodium Chloride 230 ML 115 MG IV (21:33)
[2020-02-13 03:35] VITALS: BP 121/66; PULSE 68; RESP 17; TEMP 36.5; O2SAT 93
[2020-02-13 07:51] VITALS: BP 127/56; PULSE 83; RESP 19; TEMP 36.1; O2SAT 95
[2020-02-13] MEDS: 0.9 % Sodium Chloride Flush 3 ML SYRINGE IVFLUSH (08:20)
--- NOTE | 2020-02-13 12:34 | MHC.CM.PN ---
DC TODAY to home. No homecare services, Pt is independent. Patient arranged private transport.
--- NOTE | 2020-02-13 16:32 | P.DS_ITS ---
DS: Providers Provider Date of admission: 02/07/20 22:10 Primary care physician: Lion Pryor MD Consults: 02/07/20 23:23 Consult to Infectious Diseases Routine Consulting Provider: Odilia Avila Reason for consultation: covid infection Has provider been notified: No DS: Diagnosis Discharge Diagnosis (1) COVID-19: Status: Acute (2) Hypoxia: Status: Acute (3) Respiratory failure: Status: Acute DS: Medications Discharge Medications Home Medications: Home Medications Medication Instructions Recorded Confirmed losartan 1 tab PO DAILY 02/07/20 02/07/20 pravastatin 20 mg PO BEDTIME 02/07/20 02/07/20 Previous Rx's Medication Instructions Recorded dexamethasone 6 mg PO DAILY #3 tab 02/13/20 DS: Summary Hospital Course Hospital Course: Admission note HPI 74 y/o female with PMHX of HTN and HLP who presented from home c/o SOB. Per history provided by the patient, for the past several days has been having worsening dry cough associated with SOB at rest, generalized weakness and Poor apppetite. Patient denies any chest pain, nausea, vomiting, diarrhea or fever. No sick contacts or recent travel. On presentation to the ED patient was found to be hemodynamically stable, no evidence of fever, O2 sat on room air of 88, Blood work showing NA of 134, Covid +, CT chest showing bilateral patchy opacities. Patient placed on nasal cannula saturating well now and One dose of IV steroid given. Decision for admission given. Patient seen and examined at the bedside, laying down in bed in no acute distress. ROS as above otherwise negative. Physical exam unremarkable. Hospital course The patient was admitted to the hospital for treatment of acute hypoxic respiratory failure secondary to COVID-19 infection. She was evaluated by infectious disease specialist and treated with oxygen supplement, IV dexamethasone and IV remdesivir for duration of 5 days during the hospital stay with good response as the patient was maintaining her oxygen level in mid 90s on room air for the last 48 hours. She was able to ambulate and had PT evaluation with recommendation to go home with no therapy needed. To be discharged home to finish 3 more days Time Spent with Patient Time attestation: Total time spent providing and/or coordinating discharge services: Physical Exam Vital Signs: Vital Signs: Last Vital Signs Temp 97.0 F 02/13/20 07:51 Pulse 83 02/13/20 07:51 Resp 19 02/13/20 07:51 BP 127/56 L 02/13/20 07:51 Pulse Ox 95 02/13/20 07:51 Body Mass Index 22.4 Constitutional : Alert, oriented, not in distress Neck : Normal inspection, Supple Cardiovascular : RRR, S1 S2, no lower extremity edema Respiratory : Good bilateral air entry, no crackles, wheezes or rhonchi Gastrointestinal: soft, lax, Normal bowel sounds, Non tender Skin : Warm/Dry, No rash Neurological : Alert & oriented x3, No focal deficit DS: Data Data Completed and Pending Labs on day of discharge: 02/07/20 18:08 ECG 12 lead EKG Stat EKG Documentation DIRECTED CT chest wo con Stat 02/07/20 18:33 Basic Metabolic Panel Stat Complete Blood Count Auto Diff Stat Lactic Acid Stat Partial Thromboplastin Time Stat Prothrombin Time INR Stat SARS-CoV2/FLU/RSV Stat Troponin-I High Sensitivity Stat 02/07/20 18:36 Blood Culture X2 [BC] Stat 02/07/20 19:46 Albuterol Sulfate [Ventolin] 2 puff INHALE ONCE ONE dexAMETHasone Sod Phosphate/PF [Decadron] 10 mg IVPUSH ONCE ONE 02/07/20 22:00 Heparin Sodium,Porcine 5,000 unit SUBCUT Q8H 02/07/20 22:10 Ambulate QSHIFT WHILE AWAKE Cont. Telemetry w/Vital Sign limit Q4HR IV insert/maintain Q4HR Intake and Output QSHIFTE Oxygen administration Nasal Cannula 2 lpm Pulse Oximetry Q4HR Vital Signs Q4HR Code Status Routine 02/07/20 22:17 Transfer Order Routine 02/08/20 00:00 0.9 % Sodium Chloride Flush [NS Flush] 3 ml IVFLUSH QSHIFT 02/08/20 06:00 dexAMETHasone Sod Phosphate/PF [Decadron] 6 mg IVPUSH Q24H 02/08/20 06:45 Basic Metabolic Panel Routine C Reactive Protein Routine Complete Blood Count Auto Diff Routine Ferritin Routine Lactate Dehydrogenase Routine Procalcitonin Routine SLIDE REVIEW Routine 02/08/20 09:00 Losartan Potassium [Cozaar] 25 mg PO DAILY 02/08/20 12:55 Add Laboratory Test Routine 02/08/20 17:50 Liver Panel Urgent 02/08/20 21:00 Enoxaparin Sodium [Lovenox] 40 mg SUBCUT BEDTIME Pravastatin Sodium [Pravachol] 20 mg PO BEDTIME dexAMETHasone Sod Phosphate/PF [Decadron] 6 mg IVPUSH BEDTIME 02/08/20 22:00 Remdesivir [Veklury] 200 mg 0.9 % Sodium Chloride [Ns] 210 ml IV ONCE 02/09/20 06:18 Basic Metabolic Panel DAILY@0600 C Reactive Protein Routine Complete Blood Count no Diff DAILY@0600 Lactate Dehydrogenase Routine Liver Panel DAILY@0600 Procalcitonin Routine 02/09/20 07:52 Add Laboratory Test Routine 02/09/20 22:00 Remdesivir [Veklury] 100 mg 0.9 % Sodium Chloride [Ns] 230 ml IV Q24H 02/10/20 05:10 Complete Blood Count no Diff DAILY@0600 02/10/20 05:11 Basic Metabolic Panel DAILY@0600 C Reactive Protein Routine Liver Panel DAILY@0600 Procalcitonin Routine 02/10/20 07:50 Airborne/Contact Precautions ONGOING 02/10/20 11:24 Continuous pulse oximetry .Once 02/11/20 11:17 Physical Therapy Eval & Treat NEEDED 02/13/20 09:00 Fluticasone Propionate Nasal [Flonase Nasal] 1 spray NOSTRIL-B BID Laboratory Last Values WBC 6.2 X10*3/uL (4.8-10.8) 02/10/20 05:10 RBC 4.72 X10*6/uL (4.20-5.50) 02/10/20 05:10 Hgb 13.9 g/dl (12.0-16.0) 02/10/20 05:10 Hct 42.0 % (37-47) 02/10/20 05:10 MCV 89.0 fL (80-98) 02/10/20 05:10 MCH 29.4 pg (27.0-33.0) 02/10/20 05:10 MCHC 33.1 g/dl (31.0-35.0) 02/10/20 05:10 RDW 12.6 % (11.0-16.0) 02/10/20 05:10 Plt Count 234 X10*3/uL (160-400) 02/10/20 05:10 MPV 9.7 fL (9.4-12.3) 02/10/20 05:10 Immature Gran % (Auto) 0.0 % (0.0-0.4) 02/08/20 06:45 Neut % (Auto) 76.9 % (45-73) H 02/08/20 06:45 Lymph % (Auto) 18.2 % (20-40) L 02/08/20 06:45 [place] % (Auto) 4.9 % (2-11) 02/08/20 06:45 Eos % (Auto) 0.0 % (0-4) 02/08/20 06:45 Baso % (Auto) 0.0 % (0-2) 02/08/20 06:45 Lymph # (Auto) 0.5 X10*3/uL (1.2-4.9) L 02/08/20 06:45 [place] # (Auto) 0.1 X10*3/uL (0.1-1.2) 02/08/20 06:45 Eos # (Auto) 0.0 X10*3/uL (0.0-0.4) 02/08/20 06:45 Baso # (Auto) 0.0 X10*3/uL (0.0-0.2) 02/08/20 06:45 Abs Immat Gran (auto) 0.00 X10*3/uL (0.00-0.03) 02/08/20 06:45 Absolute Neuts (auto) 2.2 X10*3/uL (2.0-8.3) 02/08/20 06:45 Absolute Nucleated RBC 0.000 X10*3/uL (0.0-0.012) 02/10/20 05:10 Nucleated RBC % (auto) 0.0 /100WBC (0.0-0.2) 02/10/20 05:10 Smear Tech's Comments VERIFIED 02/08/20 06:45 PT 12.5 SEC (10.8-13.0) 02/07/20 18:33 INR 1.1 (0.9-1.1) 02/07/20 18:33 APTT 27.9 SEC (24.1-38.0) 02/07/20 18:33 Sodium 138 mmol/L (135-145) 02/10/20 05:11 Potassium 5.0 mmol/l (3.3-5.1) 02/10/20 05:11 Chloride 105 mmol/L (96-108) 02/10/20 05:11 Carbon Dioxide 25 mmol/L (22-29) 02/10/20 05:11 Anion Gap 13 (12-20) 02/10/20 05:11 BUN 27 mg/dL (9-16) H 02/10/20 05:11 Creatinine 0.75 mg/dL (0.5-1.4) 02/10/20 05:11 Estim Creat Clear Calc 53.6 02/10/20 05:11 Estimated GFR > 60 02/10/20 05:11 Random Glucose 144 mg/dL (60-115) H 02/10/20 05:11 Lactic Acid 1.0 mmol/L (0.5-2.0) 02/07/20 18:33 Calcium 8.2 mg/dL (8.4-10.2) L 02/10/20 05:11 Ferritin 1232 ng/mL (10-250) H 02/08/20 06:45 Total Bilirubin 0.5 mg/dL (0.0-1.0) 02/10/20 05:11 Direct Bilirubin 0.3 mg/dL (0.0-0.5) 02/10/20 05:11 AST 33 U/L (5-31) H 02/10/20 05:11 ALT 25 U/L (0-31) 02/10/20 05:11 Alkaline Phosphatase 50 U/L (39-117) 02/10/20 05:11 Lactate Dehydrogenase 440 U/L (122-220) H 02/09/20 06:18 Troponin I High Sens 8.2 ng/L (<3.5-17.0) 02/07/20 18:33 C-Reactive Protein 1.24 mg/dL (< or = 0.50) H 02/10/20 05:11 Total Protein 5.2 g/dL (6.5-8.0) L 02/10/20 05:11 Albumin 3.2 g/dL (3.5-5.0) L 02/10/20 05:11 Procalcitonin 0.05 ng/mL 02/10/20 05:11 Urine Color YELLOW 02/08/20 02:22 Urine Appearance CLEAR 02/08/20 02:22 Urine pH 6.0 (5.0-8.0) 02/08/20 02:22 Ur Specific [place] 1.020 (1.005-1.025) 02/08/20 02:22 Urine Protein NEG MG/DL (NEG-TRACE) 02/08/20 02:22 Urine Glucose (UA) NEG MG/DL (NEG) 02/08/20 02:22 Urine Ketones 15 MG/DL (NEG) 02/08/20 02:22 Urine Blood TRACE (NEG) 02/08/20 02:22 Urine Nitrite NEG (NEG) 02/08/20 02:22 Ur Leukocyte Esterase NEG (NEG) 02/08/20 02:22 Urine RBC 1-4 /HPF (0) 02/08/20 02:22 Urine WBC 1-4 /HPF (0-4) 02/08/20 02:22 Ur Squamous Epith Cells 1+ /LPF 02/08/20 02:22 Urine Bacteria 1+ /LPF 02/08/20 02:22 Urine Mucus 1+ /LPF 02/08/20 02:22 Coronavirus (PCR) POSITIVE (Negative) A 02/07/20 18:33 Influenza Type A (PCR) NEGATIVE (Negative) 02/07/20 18:33 Influenza Type B (PCR) NEGATIVE (Negative) 02/07/20 18:33 RSV RNA Qual (PCR) NEGATIVE (Negative) 02/07/20 18:33 Discharge Plan Discharge Patient Disposition: Home, Self-Care Referrals: Lion Pryor MD [Primary Care Provider] - Discharge Medications: New dexamethasone 6 mg tablet 6 mg PO DAILY Qty: 3 RF: 0 Continued losartan 25 mg tablet 1 tab PO DAILY RF: 0 pravastatin 20 mg Tablet 20 mg PO BEDTIME RF: 0 Discharge Orders: Discharge Order (Routine); Ordered 02/13/20 Ordered By: Santy De La Rosa Diet: advance to usual diet Activity on Discharge: As tolerated Discharge Date/Time: 02/13/20 13:06 Visit Report Forms: Patient Portal Discharge page Care Plan Goals: Read below Health Concerns: Read below Plan of Treatment: You were admitted to the hospital for evaluation of difficulty breathing. You were found to have COVID-19 infection with low oxygen level. You were admitted to the hospital and treated with supplemental oxygen and steroids and antiviral medication remdesivir with good response over the course of treatment. You were weaned off the oxygen for the last 2 days and were able to ambulate on room air. Continue dexamethasone as prescribed To follow-up with PCP as scheduled
== END 2020-02-13 13:06 | disposition home or self-care (01) | DRG 137 ==
LOC: HO.ED 22:58 → HO.IMC 23:01
PROVIDERS: Family Medicine; Internal Medicine; Nurse Practitioner Family; Admitting Provider Internal Medicine; Emergency Provider Emergency Medicine; PCP Internal Medicine; Visit Provider Student in an Organized Health Care Education/Training Program
DX: U07.1 COVID-19 (principal); J96.01 Acute respiratory failure with hypoxia; E78.5 Hyperlipidemia, unspecified; I10 Essential (primary) hypertension; Z79.899 Other long term (current) drug therapy
CPT/HCPCS: 0241U; 36415; 71250; 80048; 80076; 81001; 82728; 83605; 83615; 84145; 84484; 85025; 85027; 85610; 85730; 86140; 87040; 93005; 94640; 94664; 96374; 97162; 99285; 99291; J1100; J1650; J3490

== ENCOUNTER 2024-09-10 13:40 | Outpatient (AMB) | payer OTHER, SELFPAY ==
--- NOTE | 2024-09-10 13:44 | A.OFFVIS_ITS ---
Intake Visit Reasons: after MRI Allergies No Known Allergies Allergy (Verified 02/08/20 03:23) Medication List - Last Reconciled 09/10/24 by Julissa Wells MD alendronate 70 mg PO QWEEK celecoxib 200 mg PO DAILY dexamethasone 6 mg PO DAILY donepezil 10 mg PO DAILY lorazepam 2 mg PO losartan 1 tab PO DAILY sertraline 25 mg PO DAILY simvastatin 40 mg PO BEDTIME HPI Comments Details: 79 yo woman with cognitive problems suggestive of Alzheimer type dementia. She was noted to have a visual fieled defect and was referred here. She said that she was ok. [facility]LY [facility], [facility] Medical History (Updated 09/10/24 @ 13:52 by Julissa Wells MD) Osteoarthritis Encephalopathy Alzheimer disease Hyperlipidemia Hypertension Hypoxia No known health problems Social History Household Members: Spouse Housing: Apartment Do you presently have visiting nurse or other home services: No Second Hand Smoke Exposure: No service: No Current occupational status: retired Assessment & Plan Assessment & Plan (1) Alzheimer dementia: Comment: MRI brain WO at [place] in July 2024: Mild to mod diff atrophy, minimal MVD EEG at off in Sep 2023: WNL MRI brain WO at [place] in Sep 2023: Mild atrophy Code(s): G30.9 - Alzheimer's disease, unspecified; F02.80 - Dementia in other diseases classified elsewhere, unspecified severity, without behavioral disturbance, psychotic disturbance, mood disturbance, and anxiety Category: Medical Qualifiers: Alzheimer's disease onset: late onset Dementia severity: mild Dementia behavioral or psychological symptom: with anxiety Qualified Code(s): G30.1 - Alzheimer's disease with late onset; F02.A4 - Dementia in other diseases classified elsewhere, mild, with anxiety Plan Impression: Alzheimer dementia, mild to moderate, with mild anxiety Rec: a: Donepezil 10mg daily b: Sertraline 25mg daily c: Limit driving to local driving, not at night, not during mcmill[place] hours. Ideally, avoid driving to avoid any accidents. Coding Level of Care Code Est Pt Level 4 (28756) Diagnoses Mild late onset Alzheimer's dementia with anxiety G30.1; F02.A4 Alzheimer's disease onset: late onset Dementia severity: mild Dementia behavioral or psychological symptom: with anxiety
--- OUTSIDE RECORDS SUMMARY | 2024-09-10 14:52 | XMS_ITS | Clinical Summary ---
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 Active omega 0-day-lsf-fish oil (Fish OiL) 1,000 mg (120 mg-180 mg) capsule 1 capsule (1,000 mg total) by Not Applicable route 1 (one) time each day. Active fluorouraciL (EFUDEX) 5 % cream PLEASE SEE ATTACHED FOR DETAILED DIRECTIONS 04/30/19 22 Active glucosamine gilbert 2KCl-chondroit 500-400 mg tablet Take by mouth 1 (one) time each day. Active LORazepam (ATIVAN) 1 mg tablet Take 1-2 tablets (1-2 mg total) by mouth. 09/20/19 24 Active metroNIDAZOLE (MetroLotion) 0.75 % lotion lotion Apply topically. Active nystatin-triam cinolone (MYCOLOG II) ointment Apply fingertip amount to affected vulvar area three times weekly at night 09/07/19 23 Active LYSINE ORAL Take by mouth. Act georges multivitamin with minerals (CENTRUM) tablet Take 1 tablet by mouth 1 (one) time each day. Active donepeziL (ARICEPT) 10 mg tablet take 1 tablet by mouth every day at bedtime for 90 days 12/14/19 24 Active celecoxib (CeleBREX) 200 mg capsule Take 1 capsule (200 mg total) by mouth 1 (one) time each day if needed for mild pain. Active losartan (COZAAR) 25 mg tablet Take 1 tablet (25 mg total) by mouth 1 (one) time each day. 90 tablet 1 03/04/19 25 Active simvastatin (ZOCOR) 40 mg tablet Take 1 tablet (40 mg total) by mouth at bedtime. 90 tablet 1 03/04/19 25 Active alendronate (FOSAMAX) 70 mg tablet TAKE 1 TABLET BY MOUTH EVERY 7 DAYS. 12 tablet 1 08/15/19 25 Active alendronate (FOSAMAX) 70 mg tablet Take 1 tablet (70 mg total) by mouth every 7 (seven) days. 12 tablet 1 03/04/19 25 025 Discontinued Active Problems Problem Noted Date Diagnosed Date Prediabetes 03/07/2024 History of colonic polyps 11/27/2023 Family history of colonic polyps 11/27/2023 Age related osteoporosis 01/26/2021 Overview (11/27/2023): Started fosamax 01/2021 Vertigo 11/22/2018 Essential hypertension 10/10/2018 Overview (11/27/2023): Last Assessment & Plan: Referred to PCP for tighter control. DDD (degenerative disc disease), cervical 2018 Microscopic hematuria 02/07/2017 Overview (11/27/2023): Seen on urinalysis and then resolved Uterine prolapse 04/08/2005 Overview (11/27/2023): Last Assessment & Plan: Well controlled. Continue with #2 ring with support. Mixed hyperlipidemia 04/07/2005 Other chronic sinusitis 04/07/2005 Encounters Date Type Department Care Team Description 09/02/2024 11:00 AM EDT Office Visit Adult Medicine [address] [phone] Natasha Neal PA Essential hypertension (Primary Dx); Mixed hyperlipidemia; Prediabetes; Age-related osteoporosis without current pathological fracture; Memory loss 08/11/2024 8:03 AM EDT - 08/11/2024 11:59 PM EDT Hospital Encounter [facility] MRI [address] [place] [id number] Unspecified visual field defects Discharge Disposition: Home or Self Care 08/05/2024 11:03 AM EDT - 08/05/2024 11:59 PM EDT Hospital Encounter Radiology Department - [address] [phone] Encounter for screening mammogram for breast cancer Discharge Disposition: Home or Self Care from Last 3 Months Immunizations Name Administration Dates Next Due Influenza trivalent, 0.5mL, preservative free (Fluarix; FluLaval; Fluzone) ages 6mo and older (Afluria) 3 years and older 12/09/2018 Invajo SARS-CoV-2 COVID-19, mRNA, LNP-S, preservative free 01/28/2021,05/11/2020,04/20/2020 Pneumococcal conjugate 13 va lent (Prevnar 13, PCV13) 2mo and older 07/03/2014 Pneumococcal polysaccharide 23 valent (Pneumovax 23) 2yo and older 02/26/2010 Td Tetanus diptheria (Tdvax) 7yo and older 01/14 Tdap Tetanus diptheria acell ular pertussis (Boostrix; Adacel) 7yo and older 01/03/2008 Zoster Live 01/21/2009 Zoster recombinant (Shingrix ) 19yo and older 12/07/2018,08/03/2018 Surgical History Surgery Date Site/Laterality Comments TONSILLECTOMY PROCEDURE: HISTORICAL TONSILLECTOMY COLONOSCOPY PROCEDURE: HISTORICAL COLONOSCOPY; COMMENT: adenoma 2004 next due in 2008 COLONOSCOPY 12/18/08 PROCEDURE: CT COLONOSCOPY STOMA DX INCLUDING COLLJ SPEC SPX; COMMENT: normal; repeat in five years COLONOSCOPY 04/03/14 PROCEDURE: HISTORICAL COLONOSCOPY; COMMENT: tics; repeat in 5 yrs COLONOSCOPY 03/2019 PROCEDURE: HISTORICAL COLONOSCOPY Medical History Medical History Date Comments Mixed hyperlipidemia 04/07/2005 DX:Mixed hy perlipidemia Other chronic sinusitis 04/07/2005 DX:Other chronic sinusitis Uterovaginal prolapse, unspecified 04/08/2005 DX:Uterovaginal prolapse, unspecified Osteopenia after menopause 06/05/2018 DX:Os teopenia after menopause Family History Medical History Relation Name Comments Colon cancer Maternal Grandfather Cataracts Mother Blindness Neg Hx Breast cancer Neg Hx Glaucoma Neg Hx Macular degeneration Neg Hx Ovarian cancer Neg Hx Pancreatic cancer Neg Hx Prostate cancer Neg Hx Strabismus Neg Hx Uterine cancer Neg Hx Relation Name Status Comments Father (Age 83) DM PACER C LL Maternal Grandfather Mother Alive HTN ARTHRITIS Sister Alive HTN Social History Tobacco Use Types Packs/Day Years Used Date Smoking Tobacco: Never Smokeless Tobacco: Never Tobacco Cessation:Counseling Given: Not Answered Alcohol Use Standard Drinks/Week Comments Yes 0 (1 standard drink = 0.6 oz pur e alcohol) Housing Instability Answer Date Recorde d Are you worried that in the next 2 months you may not have stable housing? No 09/02/2024 Food Access & Nutrition Answer Date Rec orded Do you have access to a vari ety of food including fruits and vegetables? Yes 09/02/2024 Health Literacy Answer Date Recorded How often do you need to hav e someone help you when you read instructions, pamphlets, or other written material from your doctor or pharmacy? Never 09/02/2024 Caregiver: How often do you need to have someone help you when you read instructions, pamphlets, or other written material from your doctor or pharmacy? Not on file 09/02/2024 Financial Risk Answer Date Recorded How hard is it for you to pa y for the very basics like food, housing, medical care, and air conditioning / heating? Not very hard 09/02/2024 Transportation Answer Date Recorded Has the lack of transportati on kept you from meetings, work, or from getting things needed for daily living? No Has the lack of transportati on kept you from medical appointments or from getting medications? No 09/02/2024 Social Isolation Answer Date Recorded How often do you feel lonely or isolated from th ose around you? Never 09/02/2024 Food Risk Answer Date Recorded Within the past 12 months we worried whether our food would run out before we got money to buy more. Never true 09/02/2024 Within the past 12 months th e food we bought just didn't last and we didn't have money to get more. Never true 09/02/2024 Dependent Care Answer Date Recorded Do you need help finding or paying for care for your loved ones. For example, attendant child activity or elderly care for an older adult? No 09/02/2024 Education Answer Date Recorded Do you think completing more education or training, like finishing a GED, going to college, or learning a trade, would be helpful for you? No 09/02/2024 Employment and Income Answer Date Recor ded During the last four weeks, have you been actively looking for work? No 09/02/2024 Living Situation Answer Date Recorded What is your living situation? 0 09/02/2024 Comments No Sex and Gender Information Value Date Recorded Sex Assigned at Not on file Legal Sex Female 9:20 AM EST Gender Identity Not on file Sexual Orientation Not on file Obstetrics History Para Term AB IAB SAB Ectopic Multiple Livin g Live Births 2 2 2 Date Outcome GA Total Labor Labor/2nd/3rd Weight Sex Type Anes PTL Julieta A1 A5 Name Clin Term Term Last Filed Vital Signs Vital Sign Reading Time Taken Comments Blood Pressure 134/59 09/02/2024 10:55 AM EDT Pulse 62 09/02/2024 10:55 AM EDT Temperature 36.2 C (97.1 F) 09/02/2024 10:55 AM EDT Respiratory Rate 12 09/02/2024 10:5 5 AM EDT Oxygen Saturation - - Inhaled Oxygen Concentration - - Weight 58.9 kg (129 lb 12.8 oz) 025 10:55 AM EDT Height 160 cm (5' 3 ) 09/02/2024 10:55 AM EDT Body Mass Index 22.99 09/02/2024 10:55 AM EDT Plan of Treatment Upcoming Encounters Date Type Department Care Team (Late st Contact Info) Description 03/06/2025 11:00 AM EST Office Visit Adult Medicine [facility] [address] [place] [address] Natasha Neal PA [address] [place], [place] Health Maintenance Due Date Last Done Comments RSV Immunization Adult Patients (1 - 1-dose 75+ series) 06/16/2019 Colorectal Cancer Screening: Colonoscopy 01/29/2022 COVID-19 Vaccine ( season) 2023 01/28/2021, 05/26/2020, 05/11/2020, Additional history exists Influenza Vaccine (#1) 2024 12/09/2018 Hypertension/CHF/CAD Annual BMP Blood Test 03/05/2025 03/05/2024, 08/28/2023 Falls Risk Assessment 09/02/2025 09/02/2024 Social Influencers of Health Screening 09/02/2025 09/02/2024 DTaP,Tdap,and Td Vaccines (3 - Td or Tdap) 01/14/2026 01/15/2016, 01/03/2008 Cholesterol Screening (Lipid Panel) 03/05/2029 03/05/2024, 08/28/2023 Osteoporosis Screening (Bone Density Screening) 03/04/2034 03/04/2024, 01/25/2021, 06/19/2018 Pneumococcal Vaccine: 50+ Years Completed 07/03/2014, 02/26/2010 Zoster Vaccines Completed 12/07/2018, 07/21, 01/21/2009 Depression Screening Completed 09/02/2024 HIB Vaccines Aged Out No longer eligi ble based on patient's age to complete this topic HPV Vaccines Aged Out No longer eligi ble based on patient's age to complete this topic Hepatitis A Vaccines Aged Out No long er eligible based on patient's age to complete this topic Hepatitis B Vaccines Aged Out No long er eligible based on patient's age to complete this topic IPV Vaccines Aged Out No longer eligi ble based on patient's age to complete this topic MMR Vaccines Aged Out No longer eligi ble based on patient's age to complete this topic Meningococcal ACWY Vaccine Aged Out N o longer eligible based on patient's age to complete this topic Meningococcal B Vaccine Aged Out No l onger eligible based on patient's age to complete this topic RSV Immunization Patients Under 20 months Aged Out No longer eligible based on patient's age to complete this topic Varicella Vaccines Aged Out No longer eligible based on patient's age to complete this topic Procedures Procedure Name Priority Date/Time Associated Diagnosis Comments MR BRAIN WO CONTRAST Routine 08/11/2024 9:02 AM EDT Unspecified visual field defects MG MAMMO DIGITAL SCREENING W EFREN BILAT Routine 08/05/2024 11:18 AM EDT Encounter for screening mammogram for breast cancer COMPREHENSIVE METABOLIC PANEL Routine 03/05/2024 8:44 AM EST Essential hypertension Itchy skin LIPID PANEL WITH REFLEX TO DIRECT LDL Routine 03/05/2024 8:44 AM EST Mixed hyperlipidemia BD BONE DENSITY DXA AXIAL SKELETON Routine 03/04/2024 11:29 AM EST Age-related osteoporosis without current pathological fracture from Last 3 Months or Most Recently Relevant to Health Maintenance Results * MR Brain wo Contrast (08/11/2024 9:02 AM EDT) Anatomical Region Laterality Modality Head and Neck Magnetic Resonan ce 08/11/2024 11:0 9 AM EDT Impressions 08/11/2024 11:15 AM EDT Negative MRI. -------- FINAL REPORT -------- Dictated By: Soy Claire Dictated Date: 08/11/2024 11:09 ET Assigned Physician: Soy Claire Reviewed and Electronically Signed By: Soy Claire Signed Date: 08/11/2024 11:15 ET Workstation ID: [id number] Transcribed By: Self Edit Transcribed Date: 08/11/2024 11:09 ET Narrative 08/11/2024 11:15 AM EDT HISTORY: visual field defect. TECHNIQUE: Routine MRI of the brain without contrast. COMPARISON: 09/24/2023. FINDINGS: No acute territorial infarct, mass effect, or intracranial hemorrhage. No significant white matter disease. Mild periventricular hyperintensity. Single focus of the interstitial hyperintensity in the right cerebral hemisphere is nonspecific. Symmetric parenchymal volume loss. CSF spaces commensurate for degree of atrophy. No hydrocephalus. Visualized paranasal sinuses are clear. Mastoid air cells are clear. No calvarial fracture. Bilateral lens implants.. Procedure Note Soy Claire MD - 08/11/2024 HISTORY: visual field defect. TECHNIQUE: Routine MRI of the brain without contrast. COMPARISON: 09/24/2023. FINDINGS: No acute territorial infarct, mass effect, or intracranial hemorrhage. No significant white matter disease. Mild periventricular hyperintensity.Single focus of the interstitial hyperintensity in the right cerebralhemisphere is nonspecific. Symmetric parenchymal volume loss. CSF spaces commensurate for degree ofatrophy. No hydrocephalus. Visualized paranasal sinuses are clear. Mastoid air cells are clear. No calvarial fracture. Bilateral lens implants.. IMPRESSION: Negative MRI. -------- FINAL REPORT -------- Dictated By: Soy Claire Dictated Date: 08/11/2024 11:09 ET Assigned Physician: Soy Claire Reviewed and Electronically Signed By: Soy Claire Signed Date: 08/11/2024 11:15 ET Workstation ID: [id number] Transcribed By: Self Edit Transcribed Date: 08/11/2024 11:09 ET Julissa Wells MD IMG MRI PROCEDURES Final Re sult * MG Mammo Digital Screening w Efren bilat (08/05/2024 11:18 AM EDT) Anatomical Region Laterality Modality Breast Bilateral Mammography 08/05/2024 6:54 PM EDT Impressions 08/05/2024 6:57 PM EDT 1. No mammographic evidence of malignancy 2. Heterogeneous breast parenchyma BI-RADS CATEGORY: 2 - BENIGN RECOMMENDATION: Screening bilateral mammogram is recommended in 1 year. Mammo Location: [facility], [address] [place] [address], [id number], . -------- FINAL REPORT -------- Dictated By: Billy Cat Dictated Date: 08/05/2024 18:54 ET Assigned Physician: Billy Cat Reviewed and Electronically Signed By: Billy Cat Signed Date: 08/05/2024 18:57 ET Workstation ID: [id number] Transcribed By: Self Edit Transcribed Date: 08/05/2024 18:54 ET Narrative 08/05/2024 6:57 PM EDT A BILATERAL DIGITAL 3D SCREENING MAMMOGRAPHY HISTORY: Routine screening. No family history of breast cancer. COMPARISON: Multiple priors dating back to 07/09/2020 Technique: Bilateral full field digital mammography (3D) was performed using standard CC and MLO projections CAD was used to evaluate this mammogram. FINDINGS: Right: No suspicious masses, groups of microcalcification or areas of architectural distortion identified. Stable typically benign parenchymal asymmetries. Left: No suspicious masses, groups of microcalcification or areas of architectural distortion identified. Stable typically benign parenchymal asymmetries. BREAST DENSITY: C - The breasts are heterogeneously dense which may obscure small masses. Procedure Note Billy Cat MD - 08/05/2024 A BILATERAL DIGITAL 3D SCREENING MAMMOGRAPHY HISTORY: Routine screening. No family history of breast cancer. COMPARISON: Multiple priors dating back to 07/09/2020 Technique: Bilateral full field digital mammography (3D) was performedusing standard CC and MLO projections CAD was used to evaluate this mammogram. FINDINGS: Right: No suspicious masses, groups of microcalcification or areas ofarchitectural distortion identified. Stable typically benign parenchymalasymmetries. Left: No suspicious masses, groups of microcalcification or areas ofarchitectural distortion identified. Stable typically benign parenchymalasymmetries. BREAST DENSITY: C - The breasts are heterogeneously dense which mayobscure small masses. IMPRESSION: 1. No mammographic evidence of malignancy 2. Heterogeneous breast parenchyma BI-RADS CATEGORY: 2 - BENIGN RECOMMENDATION: Screening bilateral mammogram is recommended in 1 year. Mammo Location: [facility], [address] [place] [address], [id number], . -------- FINAL REPORT -------- Dictated By: Billy Cat Dictated Date: 08/05/2024 18:54 ET Assigned Physician: Billy Cat Reviewed and Electronically Signed By: Billy Cat Signed Date: 08/05/2024 18:57 ET Workstation ID: [id number] Transcribed By: Self Edit Transcribed Date: 08/05/2024 18:54 ET us Hipolito DOMINGUEZ IMG BI PROCEDURES Final R esult * Lipid panel with reflex to direct LDL (03/05/2024 8:44 AM EST) Cholesterol 181 0 - 200 mg/dL LAB CHEMISTRY METHOD 03/05/2024 10:41 AM [facility] Triglycerides 122 0 - 150 mg/dL LAB CHEMISTRY METHOD 03/05/2024 10:41 AM [facility] HDL 66 >=40 mg/dL LAB CHEMISTRY METHOD 03/05/2024 10:41 AM [facility] LDL Calculated 91 0 - 100 mg/dL LAB CHEMISTRY METHOD 03/05/2024 10:41 AM [facility] VLDL Cholesterol Lloyd 24.4 mg/dL LAB CHEMISTRY METHOD 03/05/2024 10:41 AM [facility] Non HDL Chol. (LDL+VLDL) 115 <145 mg/dL LAB CHEMISTRY METHOD 03/05/2024 10:41 AM [facility] Chol/HDL Ratio 2.7 0.0 - 4.4 LAB CHEMISTRY METHOD 03/05/2024 10:41 AM [facility] Blood Venous blood specimen / Unknown Venipuncture / Unknown 03/05/2024 8:44 AM EST 03/05/2024 8:44 AM EST us Natasha Ángel DOMINGUEZ LAB BLOOD ORDERABLES Final Resul t [facility] [address] [place] [address], * (ABNORMAL) Comprehensive metabolic panel (03/05/2024 8:44 AM EST) Pathologist [facility] Sodium 141 133 - 145 mmol/L LAB CHEMISTRY METHOD 03/05/2024 10:41 AM [facility] Potassium 4.2 3.5 - 5.5 mmol/L LAB CHEMISTRY METHOD 03/05/2024 10:41 AM [facility] Chloride 110 96 - 110 mmol/L LAB CHEMISTRY METHOD 03/05/2024 10:41 AM [facility] CO2 28 21 - 32 mmol/L LAB CHEMISTRY METHOD 03/05/2024 10:41 AM [facility] Anion Gap 3 3 - 11 LAB CHEMISTRY METHOD 03/05/2024 10:41 AM [facility] Glucose 102(H) 70 - 100 mg/dL LAB CHEMISTRY METHOD 03/05/2024 10:41 AM [facility] BUN 16 5 - 25 mg/dL LAB CHEMISTRY METHOD 03/05/2024 10:41 AM [facility] Creatinine 0.86 0.50 - 1.10 mg/dL LAB CHEMISTRY METHOD 03/05/2024 10:41 AM [facility] eGFR 69 >=60 mL/min/1. 73m2 LAB CHEMISTRY METHOD 03/05/2024 10:41 AM [facility] Comment:Calculation based on the Chronic Kidney Disease Epidemiology Collaboration (CKD-EPI) equation refit without adjustment for race. BUN/Creatinine Ratio 18.6 LAB CHEMISTRY METHOD 03/05/2024 10:41 AM [facility] Calcium 9.3 8.5 - 10.5 mg/dL LAB CHEMISTRY METHOD 03/05/2024 10:41 AM [facility] AST (SGOT) 27 10 - 42 unit/L LAB CHEMISTRY METHOD 03/05/2024 10:41 AM [facility] ALT (SGPT) 28 10 - 60 unit/L LAB CHEMISTRY METHOD 03/05/2024 10:41 AM [facility] Alkaline Phosphatase 64 42 - 121 unit/L LAB CHEMISTRY METHOD 03/05/2024 10:41 AM [facility] Total Protein 6.6 6.0 - 8.0 g/dL LAB CHEMISTRY METHOD 03/05/2024 10:41 AM [facility] Albumin 4.1 3.2 - 5.0 g/dL LAB CHEMISTRY METHOD 03/05/2024 10:41 AM EST [facility] Total Bilirubin 1.3 0.0 - 1.4 mg/dL LAB CHEMISTRY METHOD 03/05/2024 10:41 AM EST [facility] Blood Venous blood specimen / Unknown Venipuncture / Unknown 03/05/2024 8:44 AM EST 03/05/2024 8:44 AM EST us Natasha DOMINGUEZ LAB BLOOD ORDERABLES Final Resul t [facility] [address] [place] [address], [place] [phone] * BD Bone Density DXA Axial Skeleton (03/04/2024 11:29 AM EST) Anatomical Region Laterality Modality Wrist, Hip, L-spine Bone Densito metry 03/05/2024 1:26 AM EST Impressions 03/05/2024 1:28 AM EST Impression: Bone mineral density is consistent with osteoporosis by WHO criteria. The [facility] Department of Internal Medicine recommends using National Osteoporosis Foundation (NOF) guidelines in treatment decisions related to osteoporosis. NOF guidelines suggest considering treatment for postmenopausal women and men aged 50 or older presenting with the following: History of hip or vertebral fracture. T-score = -2.5 (DXA) at the femoral neck, total hip, or spine, after appropriate evaluation to exclude secondary causes. Low bone mass (T-score between -1.0 and -2.5 at the femoral neck or spine) AND a 10-year probability of a hip fracture = 3% OR a 10-year probability of a major osteoporosis-related fracture = 20% based on the [place]-adapted WHO algorithm Please note that all treatment decisions require clinical judgment and consideration of individual patient factors, including patient preferences, co-morbidities, previous drug use, risk factors not captured in the FRAX model (e.g., frailty, falls, vitamin D deficiency, increased bone turnover, interval significant decline in bone density) and possible under- or over-estimation of fracture risk by FRAX. Optional alternative screening schedule based on josh Blake., [facility] March 10, 2011 for patients with osteopenia (based on hip BMD T-score) is as follows: * advanced osteopenia (T scores -2.00 to -2.49), BMD testing every year * moderate osteopenia (T scores -1.50 to -1.99), BMD testing every 5 years mild osteopenia or normal BMD (T scores -1.50 and higher), BMD testing every 15 years -------- FINAL REPORT -------- Dictated By: Zaira Howard Dictated Date: 03/05/2024 01:26 ET Assigned Physician: Zaira Howard Reviewed and Electronically Signed By: Zaira Howard Signed Date: 03/05/2024 01:28 ET Workstation ID: [id number] Transcribed By: Self Edit Transcribed Date: 03/05/2024 01:26 ET Narrative 03/05/2024 1:28 AM EST BONE DENSITY (DEXA) Lumbar Spine T-score is -0.9. (SD relative to 20-29 y/o adult) Z-score is +1.6. (SD relative to age matched peers) This is considered normal by WHO criteria. Left Hip T-score is -2.6. Z-score is -0.3. This is considered osteoporosis by WHO criteria. Comparison exam(s): There is interval increased bone marrow density in the hip. Confidence level is +/-95%. Procedure Note Zaira Howard MD - 03/05/2024 BONE DENSITY (DEXA) Lumbar Spine T-score is -0.9. (SD relative to 20-29 y/o adult) Z-score is +1.6. (SD relative to age matched peers) This is considered normal by WHO criteria. Left Hip T-score is -2.6. Z-score is -0.3. This is considered osteoporosis by WHO criteria. Comparison exam(s): There is interval increased bone marrow density in thehip. Confidence level is +/-95%. IMPRESSION: Impression: Bone mineral density is consistent with osteoporosis by WHO criteria. The [facility] Department of Internal Medicine recommendsusing National Osteoporosis Foundation (NOF) guidelines in treatmentdecisions related to osteoporosis. NOF guidelines suggest consideringtreatment for postmenopausal women and men aged 50 or older presentingwith the following: History of hip or vertebral fracture. T-score = -2.5 (DXA) at the femoral neck, total hip, or spine, afterappropriate evaluation to exclude secondary causes. Low bone mass (T-score between -1.0 and -2.5 at the femoral neck or spine)AND a 10-year probability of a hip fracture = 3% OR a 10-year probabilityof a major osteoporosis-related fracture = 20% based on the [place]-adapted WHOalgorithm Please note that all treatment decisions require clinical judgment andconsideration of individual patient factors, including patientpreferences, co-morbidities, previous drug use, risk factors not capturedin the FRAX model (e.g., frailty, falls, vitamin D deficiency, increasedbone turnover, interval significant decline in bone density) and possibleunder- or over-estimation of fracture risk by FRAX. Optional alternative screening schedule based on josh Blake., [facility] for patients with osteopenia (based on hip BMD T-score)is as follows: * advanced osteopenia (T scores -2.00 to -2.49), BMD testing every year * moderate osteopenia (T scores -1.50 to -1.99), BMD testing every 5years mild osteopenia or normal BMD (T scores -1.50 and higher), BMD testingevery 15 years -------- FINAL REPORT -------- Dictated By: Zaira Howard Dictated Date: 03/05/2024 01:26 ET Assigned Physician: Zaira Howard Reviewed and Electronically Signed By: Zaira Howard Signed Date: 03/05/2024 01:28 ET Workstation ID: [id number] Transcribed By: Self Edit Transcribed Date: 03/05/2024 01:26 ET us Natasha Ángel HERNANDEZ DXA PROCEDURES Final Result from Last 3 Months or Most Recently Relevant to Health Maintenance Insurance [facility] Care Teams Loop Machine Operator Relationship Specialty Start Date End Date Hipolito Almeida PA [address] [place] [address] PCP - General Internal Medicine 03/04/24
--- OUTSIDE RECORDS SUMMARY | 2024-09-10 14:52 | XMS_ITS | Data Portability ---
Author Organization [facility] [address] Address [address] [place] [address] Care Team Providers Care Pharmacy Consultant Name Role Phone YOSEPH SAMANIEGO Primary Care Provider Assessment No assessment recorded. Plan of Treatment Reminders Order Date Submit Date Provider Last Modified By Organization Details Last Modified Time Details Appointments None record ed. Lab None record ed. Referral None record ed. Procedures None record ed. Surgeries None record ed. Imaging None record ed. Medication Orders None record ed. Patient TargetsNo targets recorded. Patient Instructions Encounter Date Encounter Id Patient Instructions Last Modified By Organization Details Last Modified Time 05/23/2022 [id number] - Patient was informed about having a skin tear, - Discussed with the patient about no signs of any overlying secondary skin infection. - Discussed about wound care measures and applicable of appropriate barrier agents to prevent secondary infection. - Discussed with the patient about follow-up. - Patient to call us if he notices any signs of infection which were discussed and educated to the patient. Not available 05/23/2022 16:17:12 05/26/2022 [id number] cuts: care instructions Not available 05/26/2022 08:43:59 application of wound dressing* [email or web address] Not available 06/02/2022 07:41:09 KEEP AREA CLEAN AND DRY. MAY APPLY SMALL AMOUNT OF TRIPLE ANTIBIOTIC OINTMENT TO AREA DAILY. LET AREA AIR DRY MUCH POSSIBLE. COVER AREA IF OUT IN PUBLIC. NO ANIMIALS AROUND WOUND. MAY WASH AREA WITH GENTLE ANTIBACTERIAL SOAP OR BABY SHAMPOO. SUTURES OUT INSTRUCTED. KEEP EXTREMITY ELEVATED AVOID DISHWATER, BATH TUB WATER, POOL OR LOERA WATER. MONITOR FOR SIGNS OF INFECTION: FEVER, REDNESS, SWELLING, YELLOW DRAINAGE, RED STREAKING, INCREASED PAIN OR DECREASED MOVEMENT OF EXTREMITY. GO TO ER IMMEDIATELY. IF PRESCRIBED ANTIBIOTIC: TAKE ALL OF ANTIBIOTIC DIRECTED. MAY CHANGE DRESSING DAILY NEEDED. MAY RETURN IN 2 TO 3 DAYS FOR WOUND RECHECK NEEDED. [email or web address] Not available 05/26/2022 08:42:17 Reason for Referral None Reported. Problems Name Problem SNOMED Code Status Onset Date Resolution Date Notes Provider Name and Address Organization Details Recorded Time Hypercholestero lemia 14466619 Active 2022 Madison farooq PA - [facility] 3 15:36:18 Hypertensive disorder 60321817 Active 2022 Madison farooq PA - [facility] 15:36:31 Osteoporosis 97853065 Active 2022 Madison farooq PA - [facility] 15:36:43 Problem Notes None recorded. Procedures Surgical History Date Name Laterality Status Provider Name and Address Organization Details Recorded Time 05/23/2022 Laceration, Simple Repair, (scalp/neck /trunk/tasha rashid/extre mities) 2.6-7.5cm completed Holland Koroma NP [address] [place], [address], [place] - [facility] 05/23/2022 16:16:21 Imaging Results None recorded. Procedure Notes None recorded. Medical Equipment None Reported. Allergies No known drug allergies Medications Name Sig Start Date Stop Date Status Note LastModified by Organization Details LastModified Time lysine active Not Available Not Availa ble Not Available meloxicam active Not Available Not Dasha ilable Not Available Fosamax active Not Available Not Avail able Not Available nystatin-triam cinolone active Not Available Not Available Not Available Fish Oil active Not Available Not Avai lable Not Available tretinoin active Not Available Not Dasha ilable Not Available fluorouracil active Not Available Not Available Not Available simvastatin active Not Available Not A vailable Not Available losartan active Not Available Not Avai lable Not Available Glucosamine active Not Available Not A vailable Not Available azelaic acid active Not Available Not Available Not Available MetroLotion active Not Available Not A vailable Not Available multivitamin active Not Available Not Available Not Available Caltrate 600 plus D active Not Available Not Available Not Available Vitals Date Recorded Body height Body mass index (BMI) Body weight Body temperature Oxygen saturation Oxygen saturation in Arterial blood by Pulse oximetry Heart rate Respiratory rate Systolic And Diastolic Systolic And Diastolic Provider Name and Address Organization Details Last Updated DateTime 3 160.02 cm 23.2 kg/m2 06930.6 g 98.2 [degF] 97 % 97 % 66 /min 18 /min 168/94 mm[Hg] 160/80 mm[Hg] Madisongordo Martinezjesus [facility] 3 15:42:14 Date Recorded Body height Body mass index (BMI) Body weight Respiratory rate Oxygen saturation Oxygen saturation in Arterial blood by Pulse oximetry Heart rate Body temperature Systolic And Diastolic Provider Name and Address Organization Details Last Updated DateTime 3 160.02 cm 23.2 kg/m2 17897.6 g 18 /min 96 % 96 % 89 /min 97.8 [degF] 158/69 mm[Hg] PADMAJA HORNER [facility] 3 08:14:17 Social History Question Answer Notes LastModified by [employer] Details LastModified Time Tobacco Smoking Status Never Smoker Madison farooq [facility] 05/23/2022 15:37:12 Have You Recently Traveled Abroad? No Information not available 05/23/2022 Sex: Unknown Functional Status Question Answer Note LastModified by [employer] Details LastModified Time Do you use any illicit or recreational drugs? No Information not available 05/23/2022 Do you or have you ever used any other forms of tobacco or nicotine? No Information not available 05/23/2022 What is your level of alcohol consumption? None Information not available 05/23/2022 Mental Status None recorded. Family History Relationship Description Onset Age of this Age Resolved Age Notes LastModified by Organization Details LastModified Time Father No current problems or disability [email or web address] Not available 05/23 15:36:57 Mother No current problems or disability [email or web address] Not available 05/23 15:36:58 Medical History No medical history recorded. Gynecological HistoryNo gynecological history recorded. Obstetrics History GPAL:G 0 P 0 0 0 0 Immunizations Vaccine Type Date Status Note Provider Nam e and Address Organization Details Recorded Time zoster recombinant 9 completed Madison Monfette null, PA - [facility] 05/23/2022 15:31:58 zoster recombinant 9 completed Madison Monfette null, PA - [facility] 05/23/2022 15:31:58 COVID-19, mRNA, LNP-S, PF, 30 mcg/0.3 mL dose 1 completed Madison Monfette null, PA - [facility] 05/23/2022 15:31:58 COVID-19, mRNA, LNP-S, PF, 30 mcg/0.3 mL dose 1 completed Madison Monfette null, PA - [facility] 05/23/2022 15:31:58 COVID-19, mRNA, LNP-S, PF, 30 mcg/0.3 mL dose 1 completed Madison Monfette null, PA - [facility] 05/23/2022 15:31:58 COVID-19, mRNA, LNP-S, PF, 30 mcg/0.3 mL dose 1 completed Madison Monfette null, PA - [facility] 05/23/2022 15:31:58 pneumococcal polysaccharide PPV23 1 completed Madison Monfette null, PA - [facility] 05/23/2022 15:31:58 Tdap 8 completed Madison Monfette null, PA - [facility] 05/23/2022 15:31:58 Pneumococcal conjugate PCV 13 5 completed Madison Monfette null, PA - [facility] 05/23/2022 15:31:58 zoster live 9 completed Madison Monfette null, PA - [facility] 05/23/2022 15:31:58 Td (adult), 2 Lf tetanus toxoid, preservative free, adsorbed 6 completed Madison Monfette null, PA - [facility] 05/23/2022 15:31:58 Past Encounters Encounter ID Performer Location Encounter Start Date Encounter Closed Date Diagnosis/Indication Diagnosis SNOMED-CT Code Diagnosis ICD10 Code Diagnosis Note [id number] [address] [place] [address] 07/20/2021 11:06:51 07/20/2021 11:41:05 [id number] Holland Koroma NP [address] [place] [address] 05/23/2022 14:31:40 05/23/2022 16:18:52 Abrasion of skin of left forearm 6777663392 0466513 S50.812A [id number] Holland Koroma NP [address] [facility] [address] [place] [address] 05/26/2022 08:02:48 05/26/2022 08:45:39 Tear of skin 542812533 T14.8XXA Educated a bout wound care 396880459 Z71.89 Health Concerns Section Related Observation LastModified by Organization Detai ls LastModified Time None Recorded Concern Status LastModified by Organization Details LastModified Time None Recorded Advance Directives Directive None Recorded Payers Insurance Date Sequence Insurance Name Policy Number Policy Easley Covered Member ID Easley Member ID Guarantor Name 05/26/[address] [place] [address] [id number] ra Pilar Camacho [id number] Sandra Camacho Notes Date Note Type Note Provider Name and Address Organization Details Recorded Time 3 text/html Rash / Skin LesionReported bypatient.source of patient informationInformation obtained from patient; Patient arrived at Urgent Care ambulatory Location:[place] Quality:non-healing Severity:mild Duration:4 days Alleviating Factors:nothing gives relief Associated Symptoms:no fever; no fatigueNotes:triangular skin tear on dorsal aspect of left forearm . Holland Koroma NP [address] [place], [address], [place] - [facility] 05/23/2022 16:17:31 3 text/html UC Wound/LacerationReported bypatient.Location:[facility] Quality:not bleeding; no undermining; no cellulitis; no drainage; no eschar; laceration Severity:mild Duration:7 days Context:trauma Associated Symptoms:no fever; no bruising; no numbness; no tingling; normal sensationNotes:Healing skin tear on left forearm . wound recheck. Holland Koroma NP [address] [place], [address], [place] - [facility] 05/26/2022 08:44:59 OBGyn Episode No OBEpisode recorded.
--- OUTSIDE RECORDS SUMMARY | 2024-09-10 14:52 | XMS_ITS | Patient Health Record ---
Author Organization [facility] Address [address] [place] [address] Care Team Providers Care Workers Compensation Claims Assistant Name Role Phone Juan Miguel Barnard Unavailable [phone] Reason For Referral No Information Medications Medication SIG (Take, Route, Frequency, Duration) Notes Start Date End Date Status Vitamin A & D 5000-400 UNIT as directed Orally Active Pravastatin Sodium 20 MG 1 tablet Orally Once a day; Duration: 30 day(s) Active Glucosamine 750 MG as directed Orally Active Caltrate 600 1500 MG 1 tablet with food Orally Twice a day; Duration: 30 day(s) Active metroNIDAZOLE 0.75 % as directed Externally Active Chondroitin Sulfate 400 MG as directed Orally Active Problems Problem Type SNOMED Code ICD Code Onset Dates Problem Status W/U Status Risk Notes Problem Onychomycosis (638473522) Onychomycosis (110.1) Active confirmed Problem Pain in Limb (729.5) Active confirmed Plan Of Treatment No Information Insurance Providers Payer Name Payer Address Payer Phone Subscriber Number Group Number Insured Name Patient Relationship to Insured Coverage Start Date Coverage End Date [facility] [address] [place] [address] [id number] Sanrda Camacho Self - patient is the insured Medical (General) History Medical History History ICD Code measles mumps chicken pox cholesterol
== END 2024-09-10 13:59 | disposition home or self-care (01) ==
LOC: HO.HSM 13:40
PROVIDERS: PCP Internal Medicine; Visit Provider Psychiatry & Neurology Neurology
DX: G30.1 Alzheimer's disease with late onset (principal); F02.A4 Dementia in other diseases classified elsewhere, mild, with anxiety
CPT/HCPCS: 99214

== ENCOUNTER 2024-12-11 11:38 | Outpatient (AMB) | payer OTHER, SELFPAY ==
--- NOTE | 2024-12-11 11:50 | A.OFFVIS_ITS ---
Intake Visit Reasons: 6 month f/u Allergies No Known Allergies Allergy (Verified 02/08/20 03:23) HPI Comments Details: 79 years old woman with sfio-rd-bxdtsfxr Alzheimer type dementia. She was doing okay except that her cognitive functioning was slowly declining. Mood was all right and especially after taking sertraline she was feeling better and less anxious. There was no obvious side-effects of medicines. was more concerned about her cognitive decline. [facility] Medical History (Updated 09/10/24 @ 13:52 by Julissa Wells MD) Osteoarthritis Encephalopathy Alzheimer disease Hyperlipidemia Hypertension Hypoxia No known health problems Social History Household Members: Spouse Housing: Apartment Do you presently have visiting nurse or other home services: No Second Hand Smoke Exposure: No service: No Current occupational status: retired Review of Systems Narrative Constitutional:?No fever, chills, fatigue, weight loss, or night sweats. HEENT:?No headache, vision changes, hearing loss, nasal congestion, sore throat. Neurological:?No dizziness, syncope, seizures, numbness, tingling, weakness, or tremor. Psychiatric:?No anxiety, depression, mood swings, sleep disturbance, or hallucinations. Endocrine:?No heat/cold intolerance, polydipsia, polyuria, or hair/skin changes. Hematologic/Lymphatic:?No easy bruising, bleeding, or lymphadenopathy. Integumentary (Skin):?No rash, lesions, itching, or color changes. ? Physical Exam Neuro Other: Mental Status: She is alert and awake with normal spontaneity of speech fluency comprehension and jovial affect. Cranial Nerves: CN II: Visual lugo full to confrontation, visual acuity intact. CN III, IV, : Pupils equal, round, reactive to light and accommodation. Extraocular movements are normal. CN V: Facial sensation is normal. CN VII: Facial movements symmetrical. CN VIII: Hearing intact to bedside conversation is normal. CN IX, X: Palate elevates symmetrically. CN XI: Shoulder shrug and head turn symmetrical. CN XII: Tongue midline without atrophy or fasciculations. Gait and Station: No obvious gait abnormality. No ataxia or instability. Extrapyramidal: Full facial expressions and blinking. No rigidity. Movements are appropriate with no tremor or abnormality. Speech: Normal; no dysarthria or tremor. Assessment & Plan Assessment & Plan (1) Alzheimer dementia: Comment: MRI brain WO at [facility] in July 2024: Mild to mod diff atrophy, minimal MVD EEG at off in Sep 2023: WNL MRI brain WO at [facility] in Sep 2023: Mild atrophy Code(s): G30.9 - Alzheimer's disease, unspecified; F02.80 - Dementia in other diseases classified elsewhere, unspecified severity, without behavioral disturbance, psychotic disturbance, mood disturbance, and anxiety Category: Medical Qualifiers: Alzheimer's disease onset: late onset Dementia severity: mild Dementia behavioral or psychological symptom: with anxiety Qualified Code(s): G30.1 - Alzheimer's disease with late onset; F02.A4 - Dementia in other diseases classified elsewhere, mild, with anxiety Plan Impression: Alzheimer dementia Recommendations: 1. Donepezil 10 mg a day 2. Sertraline 25 mg a day 3. 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
== END 2024-12-11 11:59 | disposition home or self-care (01) ==
LOC: HO.HSM 11:39
PROVIDERS: PCP Physician Assistant Medical; Referring Provider Internal Medicine; Visit Provider Psychiatry & Neurology Neurology
DX: G30.1 Alzheimer's disease with late onset (principal); F02.A4 Dementia in other diseases classified elsewhere, mild, with anxiety
CPT/HCPCS: 99214